=== PATIENT | male | born 1985 | race Caucasian/White ===

== ENCOUNTER 2018-01-15 07:44 | Emergency (ER) | payer SELFPAY ==
[2018-01-15 07:50] VITALS: BP 138/79; PULSE 77; RESP 16; TEMP 36.5; O2SAT 98
--- NOTE | 2018-01-15 08:45 | ED.GENADUL_ITS ---
Discharge Plan Disposition Patient Disposition: HOME Condition: Stable Discharge Details Chief Complaint: EyeProblem Clinical Impression: Bacterial conjunctivitis Primary Care Provider: NONE,NONE ED Provider: Yamile Grady Home Meds and New Rx's Prescriptions: New gatifloxacin 0.5 % drops 1 drp OP Q12H 7 Days RF: 0 Discharge Instructions Instructions: Conjunctivitis (ED) Additional Instructions: Use the antibiotic drops as directed. Engage in frequent handwashing and refrain from rubbing her left eye to prevent spread of infection which is highly contagious. Take Tylenol and Motrin as needed and directed for pain. Follow-up with primary care doctor in 1 week for reevaluation and return to the emergency department with any concerns. Discharge Data Discharge Date/Time-TO BE ENTERED AT DEPARTURE: 01/15/18 08:51 Discharge Physician: Yamile Grady Medical Decision Making 32yo M with L eye irritation and redness since yesterday and yellow discharge since this morning. Pt denies known injury, FB sensation or blurry vision. Saw pcp for same yesterday who diagnosed as allergies and was given claritin. Pt appears nontoxic and in no acute distress. L eye injection and tearing, minimal white crusting. OS 20/20, OD 20/20, OU 20/13. No periorbital edema, ecchymoses, erythema. No pain with EOMI. PERRL. Patient wears contacts daily, last use yesterday. Will treat for likely bacterial conjunctivitis with gatifloxacin which can also cover for organisms in a contact lens user. Tetanus up-to-date within 10 years. Patient instructed to follow with her primary care doctor in 1 week for reevaluation and return here with any concerns. HPI General Mode of arrival: ambulatory . Date/Time Provider Initiated Documentation: 01/15/18 08:07 . Limitations to Documentation: no limitations . Information obtained by: patient . HPI Narrative: Pt is a 32yo M with L eye irritation and redness since yesterday and yellow discharge since this morning. States eyes started as feeling swollen and sore and irritated yesterday but then woke up this morning and noted to be crusted with yellow discharge. Pt denies known injury, FB sensation or blurry vision. Saw pcp for same yesterday who diagnosed as allergies and was given claritin. Patient wears contacts daily, has taken his contacts out since yesterday. He presents wearing glasses. Last tetanus 10 years ago. Past medical history: None Surgical history: [place] teeth extraction Social history former tobacco use. Occasional alcohol use. Denies drugs Medications: None Allergies: Thur[place], NKDA PCP: PCP at his workplace at [employer] in the clinic. Related Data Home Medications Medication Instructions Recorded Confirmed gatifloxacin 1 drp OP Q12H 7 Days ml 01/15/18 Previous Rx's Medication Instructions Recorded gatifloxacin 1 drp OP Q12H 7 Days ml 01/15/18 Allergies Allergy/AdvReac Type Severity Reaction Status Date / Time salmon Allergy Severe anaphylaxis Uncoded 01/15/18 07:55 General Stated Complaint: EyeProblem RUBENS: 4 Review of Systems Review of Systems All systems reviewed & are unremarkable except as noted in HPI and below Constitutional Denies chills, Denies excessive sweating, Denies fatigue, Denies fever(s), Denies weakness and Denies weight loss Eyes Reports system reviewed and no additional complaints, except as docu, Denies blurry vision, Denies diplopia, Reports eye discharge, Denies floaters, Reports irritation, Denies itchy eyes and Denies photophobia ENT Denies vertigo, Denies dizziness, Denies otalgia, Denies nasal congestion, Denies sore throat and Denies throat swelling Cardiovascular Denies chest pain, Denies syncope, Denies rapid heart rate and Denies dyspnea Respiratory Denies dyspnea Gastrointestinal Denies abdominal pain, Denies diarrhea and Denies vomiting Genitourinary Denies hematuria, Denies dysuria and Denies flank pain Musculoskeletal Denies back pain and Denies joint swelling Integumentary/Breasts Denies lesions and Denies rash Neurologic Denies behavioral changes, Denies confusion, Denies vertigo, Denies dizziness, Denies syncope and Denies weakness Psychiatric Denies behavioral changes, Denies confusion and Denies depression Endocrine Denies excessive sweating and Denies fatigue Hematologic/Lymphatic Denies easy bruising and Denies lymphadenopathy Allergic/Immunologic Denies itchy eyes and Denies throat swelling PFSH Social History Smoking/Tobacco Use Status: Former Tobacco Use Surgical History EGD - MAC (07/10/16) Exam Const General: cooperative and healthy appearing Orientation: alert and awake HENMT Head: normal to inspection Ears: hearing grossly normal bilaterally and external ears normal General nose exam: external nose normal Face and sinus: normal facial exam Eyes General: appearance normal, both eyes and all related structures Alignment and Position: alignment normal Periorbital: periorbital findings normal Eyelids: eyelids normal Conjunctivae: conjunctival abnormality (Injection, mild whitish yellowish crusting) left Pupils: PERRL EOM: EOM intact bilaterally Neck Neck: normal visual inspection Resp Effort & Inspection: normal respiratory effort and able to speak in complete sentences Cardio Rate: regular rate Neuro General: alert and awake Cognition: normal cognition Speech: speech normal Gait: normal gait Extrem General: normal to inspection and full ROM Psych Appearance: grossly normal Mental Status: mental status grossly normal Speech and Movement: speech and movement normal Affect: normal affect Thought Process: normal Course Vital Signs Temperature 97.7 F 01/15/18 07:50 Pulse 77 01/15/18 07:50 Respiratory Rate 16 01/15/18 07:50 Blood Pressure 138/79 01/15/18 07:50 Pulse Oximetry 98 01/15/18 07:50 Temperature 97.7 F 01/15/18 07:50 Temperature Source Temporal Artery Scan 01/15/18 07:50 Pulse 77 01/15/18 07:50 Respiratory Rate 16 01/15/18 07:50 Respiratory Effort 01/15/18 07:53 Blood Pressure 138/79 01/15/18 07:50 Blood Pressure Position Sitting 01/15/18 07:50 Pulse Oximetry 98 01/15/18 07:50 Oxygen Delivery Method Room Air 01/15/18 07:50 Oxygen Flow Rate 0 01/15/18 07:50 Pain Level 7 01/15/18 07:50
== END 2018-01-15 08:51 | disposition home or self-care (01) ==
PROVIDERS: Emergency Provider Physician Assistant
DX: H10.022 Other mucopurulent conjunctivitis, left eye (principal)
CPT/HCPCS: 99283

== ENCOUNTER 2019-09-28 09:37 | Emergency (ER) | payer OTHER, SELFPAY ==
[2019-09-28] VITALS (18 sets, daily range): BP systolic 144–172; BP diastolic 90–107; PULSE 72–102; RESP 17; TEMP 36.7; O2SAT 96–99
--- NOTE | 2019-09-28 09:45 | DI.US_ITS ---
EXAM: US ABDOMEN LIMITED CLINICAL HISTORY: R/O cholecystitis, or gallstones RUQ abd pain TECHNIQUE: Ultrasound abdomen performed using standard protocol. COMPARISON: No exams were available for comparison FINDINGS: ABDOMINAL AORTA AND IVC: Visualized portions normal caliber. PANCREAS: Normal where visualized. LIVER: Increased echogenicity consistent with fatty infiltration. 17 cm in length. Hepatopedal flow in the Portal Vein. GALLBLADDER: No evidence of cholelithiasis. No evidence of wall thickening. No pericholecystic fluid identified. Distended measuring 4.1 cm in diameter. BILIARY SYSTEM: Common bile duct measures 3 mm. No intrahepatic biliary ductal dilation. GRIFFITH'S SIGN: Negative. KIDNEYS: Right kidney is normal in size. No evidence of renal calculi. No evidence of hydronephrosis . No renal mass or cyst identified. ASCITES: None seen. IMPRESSION: 1. Distended gallbladder but no evidence of cholelithiasis or biliary ductal dilatation. 2. Hepatic steatosis. DATA REPOSITORY:
--- NOTE | 2019-09-28 09:48 | ED.GENADUL_ITS ---
Discharge Plan Disposition Patient Disposition: HOME Condition: Stable Discharge Details Chief Complaint: Abd Prob Clinical Impression: Fatty (change of) liver, not elsewhere classified, Abdominal pain Primary Care Provider: Iris Gonzalez ED Provider: Veronica Leach Home Meds and New Rx's Prescriptions: New ondansetron HCl [Zofran] 4 mg tablet 4 mg PO Q8H PRN (Reason: nausea and vomiting) Qty: 14 RF: 0 potassium chloride 20 mEq tablet extended release 20 meq PO DAILY 7 Days Qty: 7 RF: 0 No Action chlorthalidone 50 mg tablet 50 mg PO DAILY RF: 0 lorazepam 0.5 mg tablet 0.5 mg PO PRN PRNRF: 0 sertraline 50 mg tablet 50 mg PO DAILY RF: 0 Discharge Instructions Instructions: Abdominal Pain (ED) Additional Instructions: Please follow-up with Dr. [facility] at 8: 30 AM. Have the HIDA scan done tomorrow please come here and be seen in the x-ray department. Take nausea medication as directed, take ibuprofen as needed for pain. Please come to the x-ray department at 10:45 AM tomorrow nothing to eat as per instructions. Stand Alone Forms: Work Release Referrals: Skylar Lamar MD [ [facility] STAFF PHYSICIAN] - 09/30/19 8:30 am (Please keep appointment at 830) Discharge Data Discharge Date/Time-TO BE ENTERED AT DEPARTURE: 09/28/19 13:27 Medical Decision Making <Veronica Leach - Last Filed: 09/29/19 08:21> 34-year-old male presents with chief complaint of right upper quadrant abdominal pain which he describes a sharp intermittent which began yesterday at 4 AM. Patient does endorse eating pizza prior to onset of symptoms. Associated with nausea vomiting which he describes as bilious, no diarrhea denies any hematoch ezia or hematemesis. Pain does not radiate. Denies any fever chills, chest pain, shortness of breath. Does have a history of anxiety, hypertension, depression. No surgical history. Work-up ordered including CBC, CMP, lipase UA. Normal saline 1 L bolus, Zofran 4 mg IV, morphine 2 mg IV. Abdominal ultrasound ordered to rule out cholecystitis. Differential diagnosis includes but not limited to cholecystitis, hepatitis, gallstones, gastroenteritis, small bowel obstruction (which is unlikely due to patient having normal bowel movements and no abdominal surgical history). 1039: Preliminary result received from electro mechanical technician, negative for gallstones, negative for cholecystitis no surrounding fluid. Did note fatty liver. 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 EXAM: CT ABDOMEN PELVIS W COMPARISON: Ultrasound of the abdomen 09/28/2019. FINDINGS: ABDOMEN: Lung Bases: Normal where visualized. Liver: Fatty infiltration. Round area of decreased attenuation in the dome of the right lobe of the liver. It is small for further characterization. Portal, Superior Mesenteric, and Splenic Veins: Unremarkable. Gallbladder and Biliary Tract: Distended. No radiodense calculus is identified. No biliary ductal dilatation. Pancreas: Normal density, no abnormal calcifications or inflammatory process. Spleen: Normal. Adrenals: No masses seen. Kidneys: Normal size, contour and axis. No radiodense stones or obstructive uropathy. No masses seen. Abdominal Aorta: Abdominal portion non-dilated. Bowel: No obstruction or bowel wall thickening. Appendix is unremarkable. Peritoneal Cavity: No ascites, collection or mesenteric inflammatory response. Lymph Nodes: Within normal limits. Bones: Unremarkable. Soft Tissues: Unremarkable. PELVIS: Bladder: Symmetric distention, no gross wall thickening. Reproductive Organs: Unremarkable as visualized. Lymph Nodes: Within normal limits. Bones: Within normal limits. IMPRESSION: No acute abdominal or pelvic findings. Findings were discussed with the emergency department on the date of the examination. At this time potassium is continuing to infuse, will repeat BMP after potassium infusion. Does have elevated liver enzymes hypomagnesia anemia and hypokalemia. Sodium is 135, total bilirubin is 2.0, AST 297 ALT is 381. These are elevated from previous labs last drawn on 07/10/2019. Will page surgery for outpatient follow-up for possible MRCP or HIDA scan. 1242: Spoke with Dr. Lamar with surgery regarding patient case in details she is agrees to having patient be seen morning at [facility], outpatient HIDA scan ordered for tomorrow 09/29/2019. Will discuss plan with patient. At this time I feel it is safe for patient to be sent home with nausea medication and will instruct to take ibuprofen as needed for pain. At this time hepatitis panel is pending. Patient was given Zofran 4 mg tablets at discharge, potassium 20 mEq tablets extended release p.o. daily x7 days for hypokalemia. BMP redrawn potassium has improved from 2.9 to 3.3 after 100 meq KCl IV piggyback, at this time patient is stable to be discharged home with close follow-up as previously discussed. Patient remained hemodynamically stable throughout stay, this text was generated using [employer] dictation system, please disregard any oddities of phrase or misspellings. Vital signs have improved from initial. Patient is no longer tachycardic no longer hypertensive. <Camden Gatica MD - Last Filed: 09/28/19 10:59> Patient examined [id number], discussed with Davon Leach, I agree with her assessment and plan including laboratory and ultrasound. I independently reviewed the patient's EKG which shows a normal sinus rhythm with a rate of 77, the QRS is narrow, the KS interval was 106, there is no ST segment elevation present HPI <Veronica Hany - Last Filed: 09/29/19 08:21> General Mode of arrival: ambulatory . Date/Time Provider Initiated Documentation: 09/28/19 09:41 . Limitations to Documentation: no limitations . Information obtained by: patient . HPI Narrative: 34-year-old male presents with chief complaint of right upper quadrant abdominal pain which he describes a sharp intermittent which began yesterday at 4 AM. Patient does endorse eating pizza prior to onset of symptoms. Associated with nausea vomiting which he describes as bilious, no diarrhea denies any hematochezia or hematemesis. Pain does not radiate. Denies any fever chills, chest pain, shortness of breath. Does have a history of anxiety, hypertension, depression. No surgical history. Related Data Home Medications Medication Instructions Recorded Confirmed chlorthalidone 50 mg PO DAILY 09/28/19 09/28/19 lorazepam 0.5 mg PO PRN PRN 09/28/19 09/28/19 ondansetron HCl [Zofran] 4 mg PO Q8H PRN #14 tab 09/28/19 potassium chloride 20 meq PO DAILY 7 Days #7 tab 09/28/19 sertraline 50 mg PO DAILY 09/28/19 09/28/19 Previous Rx's Medication Instructions Recorded ondansetron HCl [Zofran] 4 mg PO Q8H PRN #14 tab 09/28/19 potassium chloride 20 meq PO DAILY 7 Days #7 tab 09/28/19 Allergies Allergy/AdvReac Type Severity Reaction Status Date / Time salmon Allergy Severe anaphylaxis Uncoded 01/15/18 07:55 General Stated Complaint: Abd Prob RUBENS: 3 Review of Systems <Veronica Leach - Last Filed: 09/29/19 08:21> Narrative: Constitutional: Negative for weight loss, alert and oriented, well groomed, normal body habitus, appears uncomfortable. HEENT: Denies trauma, headaches, blurry vision, nasal discharge, sore throat, trouble swallowing. Chest: Denies chest pain, palpitations, irregular rhythm, hypertension. Respiratory: Denies Shortness of breath, cough, hemoptysis. GI: Denies diarrhea. Positive abdominal pain, nausea, vomiting.. : Denies dysuria, hematuria, flank pain, rectal bleeding. Reports decreased urination since yesterday. Neuro: Denies dizziness, blurry vision, weakness, syncope, headache or facial numbness. Hematologic: Denies easy bruising, intolerance to heat or cold, hair loss. All systems reviewed & are unremarkable except as noted in HPI and below PFSH <Veronica Leach - Last Filed: 09/29/19 08:21> Surgical History EGD - MAC (07/10/16) Social History Smoking/Tobacco Use Status: Former Tobacco Use Drug use: Never Do you feel safe at home: Yes Do you feel safe in your relationship?: Yes Exam <Veronica Leach - [facility] Filed: 09/29/19 08:21> Narrative Exam Narrative: Constitutional: Alert and oriented x3. Appears stated age. Normal body habitus. Head: Normocephalic, no trauma. Eyes: Pupils PERRLA, Red reflex noted, EOM's intact. Eyelids symmetrical without lesions, discharge, or swelling. ENT: Bilateral TM's WNL, External ear normal to inspection, no mastoid TTP, swelling, or erythema, Nasal turbinates WNL, no nasal discharge. Normal dentition, Posterior pharynx WNL, no exudate. Chest: RRR, mildly tachycardic, normal S1, S2, distal pulses intact. Resp: Lungs clear to auscultation bilaterally, no wheezes, rales, or rhonchi. Abdomen: Soft, nondistended, hyperactive bowel sounds all 4 quadrants. Tenderness right upper quadrant. Positive August sign. Musculoskeletal: Normal gait, 5/5 strength to all four extremities. Skin: No suspicious rashes or lesions. Capillary refill less than 2 sec. Neurologic: Cranial nerves II-XII intact. Alert and oriented x 3. DTR's intact. Hematologic/Lymphatic: No ecchymosis, no lymphadenopathy. Course <Veronica Leach - Last Filed: 09/29/19 08:21> Vital Signs Vital signs: Vital Signs Temperature 36.7 C 09/28/19 09:42 Pulse 102 H 09/28/19 09:42 Respiratory Rate 17 09/28/19 09:42 Blood Pressure 172/97 H 09/28/19 09:42 Pulse Oximetry 99 09/28/19 09:42 Temperature 36.7 C 09/28/19 09:42 Temperature Source Temporal Artery Scan 09/28/19 09:42 Pulse 102 H 09/28/19 09:42 Respiratory Rate 17 09/28/19 09:42 Blood Pressure 172/97 H 09/28/19 09:42 Blood Pressure Position Sitting 09/28/19 09:42 Pulse Oximetry 99 09/28/19 09:42 Oxygen Delivery Method Room Air 09/28/19 09:42 Oxygen Flow Rate 0 09/28/19 09:42 Pain Level 7 09/28/19 09:42
[2019-09-28] MEDS: Normal Saline 1,000 ML 1000 ML IV (10:00)
[2019-09-28] MEDS: Ondansetron 4 MG/2 ML VIAL IVP (10:01)
[2019-09-28] MEDS: MORPHine 10 MG/ML VIAL 2 MG IVP (10:01)
[2019-09-28 10:28] LABS: Abs Immature Grans 0.01 k/cumm (0.0-0.09); Absolute Basophil Count 0.02 k/cumm (0.0-0.2); Absolute Eosinophil Count 0.02 k/cumm (0.0-0.7); Absolute Lymphocyte Count 1.55 k/cumm (1.2-3.4); Absolute Monocyte Count 0.66 k/cumm (0.11-0.7); Absolute Neutrophil Count 3.42 k/cumm (1.2-6.7); Basophils % 0.4; Eosinophils % 0.4; HCT 45.1 % (40.0-50.0); HGB 15.9 g/dL (13.5-17.5); Immature Grans % 0.2 %; Lymphocytes % 27.3; Mean Corp. HGB Concentration 35.3 g/dL (32.0-36.0); Mean Corpuscular Hemoglobin 32.6 pg (27.0-33.0); Mean Corpuscular Volume 92.4 fL (80-95); Mean Platelet Volume 10.7 fL (8.0-11.0); Monocytes % 11.6; Neutrophils % 60.1; Platelet Count 189 x1000/uL (130-400); RBC 4.88 m/cumm (4.50-6.00); RBC Distribution Width 12.4 % (11.8-14.1); White Blood Cell Count 5.68 k/cumm (4.4-10.8)
[2019-09-28 10:41] LABS: ALT 381 U/L (16-63); AST 297 U/L (15-37); Albumin 4.5 g/dL (3.4-5.0); Alkaline Phosphatase 68 U/L (46-116); Anion Gap 14.1 mmol/L (3-11); BUN 20 mg/dL (7-18); CO2 29.9 mmol/L (21.0-32.0); CREATININE 1.13 mg/dL (0.70-1.30); Calcium 10.6 mg/dL (8.5-10.1); Chloride 91 mmol/L (98-107); Glucose 98 mg/dL (74-106); Lipase 151 U/L (73-393); Sodium 135 mmol/L (136-145); Total Protein 9.1 g/dL (6.4-8.2)
[2019-09-28 10:47] LABS: Potassium 2.9 mmol/L (3.5-5.1)
[2019-09-28 10:55] LABS: Bilirubin Color Interference (Negative); Blood Color Interference (Negative); Clarity Clear (Clear); Glucose Color Interference mg/dL (Negative); Ketones Color Interference mg/dL (Negative); Leukocyte Esterase Color Interference (Negative); Nitrite Color Interference (Negative); Specific Gravity 1.027 (1.005-1.025); Urobilinogen Color Interference EU/dL (Up TO 0.2)
[2019-09-28] MEDS: Normal Saline - Diluent 50 ML VIAL IV (10:57)
[2019-09-28] MEDS: Normal Saline Flush 10 ML SYR IVP (10:58)
[2019-09-28 11:03] LABS: Bacteria Few HPF (Negative); Casts 10-20 Hyaline LPF (Negative); Crystals Negative HPF (Negative); Epithelial Cells Few HPF (Negative); Mucus Moderate (Negative); RBC 0-2 HPF (0-2)
[2019-09-28] MEDS: Omnipaque 350 MG/ML 100 ML BTL IJ (11:03)
[2019-09-28 11:04] LABS: C & S Indicated? Yes
--- NOTE | 2019-09-28 11:16 | DI.CT_ITS ---
EXAM: CT ABDOMEN PELVIS W CLINICAL HISTORY: RUQ abd pain, R/O pancreatitis/Nause vomiting TECHNIQUE: Imaging Protocol: Axial computed tomography images with coronal and sagittal reformatted images were created and reviewed CONTRAST MATERIAL: Intravenous: Omnipaque 350 Contrast volume:100 mL Oral: No COMPARISON: Ultrasound of the abdomen 09/28/2019. FINDINGS: ABDOMEN: Lung Bases: Normal where visualized. Liver: Fatty infiltration. Round area of decreased attenuation in the dome of the right lobe of the liver. It is small for further characterization. Portal, Superior Mesenteric, and Splenic Veins: Unremarkable. Gallbladder and Biliary Tract: Distended. No radiodense calculus is identified. No biliary ductal d ilatation. Pancreas: Normal density, no abnormal calcifications or inflammatory process. Spleen: Normal. Adrenals: No masses seen. Kidneys: Normal size, contour and axis. No radiodense stones or obstructive uropathy. No masses seen. Abdominal Aorta: Abdominal portion non-dilated. Bowel: No obstruction or bowel wall thickening. Appendix is unremarkable. Peritoneal Cavity: No ascites, collection or mesenteric inflammatory response. Lymph Nodes: Within normal limits. Bones: Unremarkable. Soft Tissues: Unremarkable. PELVIS: Bladder: Symmetric distention, no gross wall thickening. Reproductive Organs: Unremarkable as visualized. Lymph Nodes: Within normal limits. Bones: Within normal limits. IMPRESSION: No acute abdominal or pelvic findings. Findings were discussed with the emergency department on the date of the examination. RADIATION DOSE DELIVERED: 630.97mGy.cm Total DLP DATA REPOSITORY: All CT scans at this facility are submitted to the National Radiology Data Registry (NRDR) Dose Index Registry (DIR) with the [employer] (ACR). RADIATION OPTIMIZATION: All CT scans at this facility use at least one of these dose optimization te chniques: automated exposure control; mA and/or kV adjustment per patient size (includes targeted exa ms where dose is matched to clinical indication); or iterative reconstruction.
[2019-09-28 11:22] LABS: Magnesium 1.4 mg/dL (1.8-2.4)
[2019-09-28] MEDS: POTASSIUM CHLORIDE 10 MEQ/100 ML BAG 100 MEQ IVPB (11:29)
[2019-09-28 12:58] LABS: Anion Gap 10.6 mmol/L (3-11); BUN 16 mg/dL (7-18); CO2 29.4 mmol/L (21.0-32.0); CREATININE 0.96 mg/dL (0.70-1.30); Calcium 9.6 mg/dL (8.5-10.1); Chloride 95 mmol/L (98-107); Glucose 88 mg/dL (74-106); Potassium 3.3 mmol/L (3.5-5.1); Sodium 135 mmol/L (136-145)
--- NOTE | 2019-09-28 13:48 | NUR.NOTE ---
Nursing Note: Patient has appt for HIDA scan September 28 @ 1030a. Follow up appt with Dr Willard BreenSeptember 29 @ [id number]. Follow up for referral [facility] Kathleen Goodrich
[2019-09-29 10:49] LABS: Hepatitis A Antibody IgM Negative (Negative); Hepatitis B Core Antibody Negative (Negative); Hepatitis B surface Ag Negative (Negative); Hepatitis C Ab w Rflx HCV PCR Negative (Negative)
== END 2019-09-28 13:27 | disposition home or self-care (01) ==
PROVIDERS: Emergency Provider Registered Nurse Emergency; PCP Nurse Practitioner Adult Health
DX: K76.0 Fatty (change of) liver, not elsewhere classified (principal); R10.11 Right upper quadrant pain; R11.2 Nausea with vomiting, unspecified; E87.6 Hypokalemia; I10 Essential (primary) hypertension
CPT/HCPCS: 36415; 80048; 80053; 83690; 86704; 86709; 86803; 87340; 93005; 96361; 96365; 96374; 96375; 99285; 74177; 76705; 81003; 81015; 83735; 85025; 87086; 93010; 99284; J2270; J2405; J3480; J3490

== ENCOUNTER 2019-09-29 01:02 | Outpatient (CLI) | payer OTHER, SELFPAY ==
--- NOTE | 2019-09-29 11:00 | DI.NM_ITS ---
EXAM: NM HEPATOBILIARY SCAN GRP CLINICAL HISTORY: ELEVATED LFT'S,RUQ ABD PAIN, FATTY LIVER DISEASE. TECHNIQUE: Injected dose: 4.9 mCi Tc-99 mebrofenin COMPARISON: CT CT ABDOMEN PELVIS W from 09/28/2019 FINDINGS: Normal hepatic transit time. Prompt excretion into the small bowel. Gallbladder was not visualized until 2 hours post injection. IMPRESSION: 1. No evidence of acute cholecystitis. 2. Delayed visualization of the gallbladder. This can be seen with chronic cholecystitis. [facility] HIDA scan may be considered for further evaluation. SNM guidelines: Gallbladder visualization should be present by 3 hours. Delayed tjcrrvr-az-[id number] moreira sit beyond 60 min raises the suspicion for partial common bile duct (CBD) obstruction. Gallbladder ejection fraction <35% has a good correlation with acalculous disease (i.e., chronic acal culous cholecystitis, cystic duct syndrome, sphincter of Oddi disease).
== END 2019-09-29 01:22 ==
PROVIDERS: PCP Nurse Practitioner Adult Health; Visit Provider Registered Nurse Emergency
DX: R10.11 Right upper quadrant pain (principal); K76.0 Fatty (change of) liver, not elsewhere classified; R94.5 Abnormal results of liver function studies; K82.8 Other specified diseases of gallbladder
CPT/HCPCS: 78227

== ENCOUNTER 2019-10-01 08:59 | Outpatient (CLI) | payer OTHER, SELFPAY ==
[2019-10-02 01:14] LABS: COVID-19 RT-PCR UVMMC Result Negative (Negative)
== END 2019-10-01 09:19 ==
PROVIDERS: PCP Nurse Practitioner Adult Health; Visit Provider Surgery
DX: Z11.59 Encounter for screening for other viral diseases (principal); Z01.818 Encounter for other preprocedural examination
CPT/HCPCS: U0003

== ENCOUNTER 2019-10-05 06:11 | Day surgery (SDC) | payer OTHER, SELFPAY ==
[2019-10-05 06:25] VITALS: BP 139/96; PULSE 92; RESP 18; TEMP 36.6; O2SAT 96
[2019-10-05] MEDS: Lactated Ringers 1,000 ML 80 ML IV (06:48)
--- NOTE | 2019-10-05 07:23 | PDOC.DSDIS_ITS ---
Discharge Plan Disposition Patient Disposition: HOME Condition: Good Discharge Details Reason For Visit: Laparoscopic cholecystectomy Attending Provider: Skylar Lamar Primary Care Provider: Iris Gonzalez Home Meds and New Rx's Prescriptions: New hydrocodone-acetaminophen 5-325 mg Tablet 1 tab PO Q4H PRN (Reason: Pain) Qty: 15 RF: 0 Continued chlorthalidone 50 mg tablet 50 mg PO DAILY RF: 0 lorazepam 0.5 mg tablet 0.5 mg PO PRN PRNRF: 0 sertraline 50 mg tablet 50 mg PO DAILY RF: 0 ondansetron HCl [Zofran] 4 mg tablet 4 mg PO Q8H PRN (Reason: nausea and vomiting) Qty: 14 RF: 0 Discharge Instructions Additional Instructions: The top bandage can be removed tomorrow. The steri strips will usually stick for about a week. When the edges start to curl up, they can be removed. It is okay to shower tomorrow, the water can run over the steri strips Do not swim or soak in a tub for two weeks Call for any concerns including fever, increased pain, vomiting, incision redness or drainage. Do not lift more than 15 pounds for two weeks. Walking and stairs are fine. Do not drive if on narcotic pain meds or if limited by pain. Do not take hydrocodone and lorazepam at the same time. May use Tylenol alternating with ibuprofen for pain control. Ice is also an option. The maximum dose for Tylenol is 4000 mg/day. May use ibuprofen 800 mg every 8 hours as needed. If concerned about constipation, you may use a stool softener or milk of magnesia. Referrals: Skylar Lamar MD [ [facility] STAFF PHYSICIAN] - (Return in 10-14 days with labs done prior. My office will contact you to schedule the blood work.) Activity:: Do not lift more than 15 pounds Remove Dressings/Wound Care:: 24 hours Shower/Bathe:: 24 hours Diet:: Low fat for two weeks Discharge Orders Discharge Orders: Discharge Order (Routine); Ordered 10/05/19 Ordered By: Skylar Lamar DS: Diagnosis Discharge Diagnosis (1) Chronic cholecystitis: Status: Acute
[2019-10-05] MEDS: ceFAZolin 2 GM/50 ML BAG IVPB (07:32)
--- NOTE | 2019-10-05 07:33 | ROE_ITS ---
Date of service: 10/05/19 Time of Service: 08:38 Operative Note Operative Note DATE OF PROCEDURE: 10/05/19 PRE-OP DIAGNOSIS: Chronic cholecystitis POST-OP DIAGNOSIS: same PROCEDURE: Laparoscopic cholecystectomy SURGEON: Skylar Lamar BUILDING EQUIPMENT INSPECTOR: John Hopson ANESTHESIA: GETA and local Patient was transported to: PACU Indications: This patient presented to the emergency department with classic biliary colic symptoms. He had a normal ultrasound and CT scan. He was noted to have a new elevation in his liver enzymes and T bili. Subsequent HIDA scan showed delayed filling of the gallbladder consistent with chronic cholecystitis. Procedure Description: The patient was placed supine on the operative table and after induction of general anesthetic was prepped and draped sterilely. A 5 mm incision was made to the left of the umbilicus after injecting local anesthetic and the abdomen entered under direct visualization. A CO2 pneumoperitoneum was begun and she was placed in reverse Trendelenberg position. The epigastric and 2 lateral ports were placed under direct visualization after injecting local anesthetic. The gallbladder did not appear acutely inflamed. The liver was noted to have moderate fatty change. The gallbladder was decompressed of about 40cc of clear bile using the needle. The fundus was grasped and pulled up over the liver. The gallbladder infundibulum was retracted laterally and the peritoneum overlying the triangle of Calot dissected free with hook cautery. The cystic duct and artery were isolated and visualized going directly onto the gallbladder. The common bile duct was visualized and avoided. The cystic duct was not dilated and had no stones palpated within it. The cystic duct was clipped twice distally and once proximally and divided. The artery was clipped twice proximally, once distally and divided. There were also a few vascular branches in the gallbladder fossa that were clipped. The gallbladder was dissected off the liver bed with hook cautery and removed through the epigastric incision in an Endo Catch bag. The operative site was inspected with no evidence of bleeding or bile leak. The CO2 was released and then the ports removed. The skin of the port sites was then closed with a 4-0 Monocryl subcuticular stitch. He tolerated the procedure well and was stable to recovery
--- NOTE | 2019-10-05 08:20 | GB_PTH ---
PATIENT: David Berrios LOC: [facility] U#:[id number] AGE/SX: 34/M ROOM: RE10/05/[address]: Skylar Lamar MD : [id number] BED: DIS: 10/05/2019 SPEC #: [id number] RECD: 10/05/19 12:33 STATUS: ТАТЬЯНА REQ #: [id number] TYREE: 10/05/19 08:[address]: Skylar Lamar DEPT: Surgical Specimen RECD BY: Lucie Ayala ENTERED: 10/05/19 12:34 SP TYPE: GB OTHR DR: Iris Gonzalez Tissues: 1 - GALLBLADDER Procedures: GROSS AND MICRO LEVEL 3 Comments: [id number]
[2019-10-05 08:38] VITALS: BP 130/87; PULSE 95; RESP 16; TEMP 36.5; O2SAT 99
[2019-10-05 08:43] VITALS: BP 125/78; PULSE 93; RESP 18; TEMP 36.6; O2SAT 95
[2019-10-05 08:48] VITALS: BP 124/71; PULSE 88; RESP 22; TEMP 36.6; O2SAT 98
[2019-10-05 09:03] VITALS: BP 124/71; PULSE 90; RESP 17; TEMP 36.6; O2SAT 98
[2019-10-05 09:54] VITALS: BP 137/81; PULSE 88; RESP 18; TEMP 36.3; O2SAT 95
[2019-10-05] MEDS: HYDROcodone 5/Acetaminophen 325 TAB PO (09:55)
== END 2019-10-05 10:39 | disposition home or self-care (01) ==
PROVIDERS: PCP Nurse Practitioner Adult Health; Visit Provider Surgery
PROC: 0FT44ZZ Resection of Gallbladder, Percutaneous Endoscopic Approach (ICD-10-PCS; CPT 47562; principal; 2019-10-05 07:30)
DX: K81.1 Chronic cholecystitis (principal); I10 Essential (primary) hypertension
CPT/HCPCS: 47562; 88304; J0690; J1100; J1885; J2001; J2405; J3475

== ENCOUNTER 2019-10-18 03:05 | Outpatient (CLI) | payer OTHER, SELFPAY ==
[2019-10-18 11:33] LABS: AST 763 U/L (15-37); Albumin 3.6 g/dL (3.4-5.0); Alkaline Phosphatase 79 U/L (46-116); BUN 7 mg/dL (7-18); Bilirubin, Total 1.4 mg/dL (0.2-1.0); CREATININE 0.62 mg/dL (0.70-1.30); Calcium 8.6 mg/dL (8.5-10.1); Chloride 101 mmol/L (98-107); Glucose 81 mg/dL (74-106); Potassium 3.4 mmol/L (3.5-5.1); Sodium 138 mmol/L (136-145); Total Protein 7.5 g/dL (6.4-8.2)
[2019-10-18 11:34] LABS: ALT 595 U/L (16-63)
== END 2019-10-18 03:25 ==
PROVIDERS: PCP Nurse Practitioner Adult Health; Visit Provider Surgery
DX: R94.5 Abnormal results of liver function studies (principal)
CPT/HCPCS: 36415; 80053

== ENCOUNTER 2019-12-02 03:18 | Outpatient (CLI) | payer OTHER, SELFPAY ==
[2019-12-02 12:43] LABS: Abs Immature Grans 0.01 10^3/uL (0.0-0.06); Absolute Basophil Count 0.04 10^3/uL (0.0-0.2); Absolute Eosinophil Count 0.04 10^3/uL (0.0-0.7); Absolute Lymphocyte Count 1.97 10^3/uL (1.2-3.4); Absolute Monocyte Count 0.54 10^3/uL (0.1-0.8); Absolute Neutrophil Count 3.97 10^3/uL (1.2-6.7); Basophils % 0.6; Eosinophils % 0.6; HCT 43.3 % (40.0-50.0); HGB 15.6 g/dL (13.5-17.5); Immature Grans % 0.2; MCH 33.1 pg (27.0-33.0); MCV 91.7 fL (80-95); Monocytes % 8.2; Neutrophils % 60.4; Nucleated RBC 0 %; Platelet Count 173 10^3/uL (130-400); RBC 4.72 10^6/uL (4.36-5.78); RDW 11.5 % (11.8-14.1); RDW-SD 38.8 fL; WBC 6.57 10^3/uL (4.4-10.8)
[2019-12-02 12:54] LABS: INR 1.1 (0.9-1.1)
[2019-12-02 13:31] LABS: Iron 101 ug/dL (65-175); Total Iron Binding Capacity 365 ug/dL (250-450); Transferrin Sat 28 % (20-55)
[2019-12-02 14:07] LABS: Albumin 4.3 g/dL (3.4-5.0); Alkaline Phosphatase 78 U/L (46-116); Anion Gap 15.5 mmol/L (3-11); BUN 7 mg/dL (7-18); Bilirubin, Total 1.1 mg/dL (0.2-1.0); CO2 26.5 mmol/L (21.0-32.0); Calcium 9.4 mg/dL (8.5-10.1); Chloride 92 mmol/L (98-107); Glucose 91 mg/dL (74-106); Sodium 134 mmol/L (136-145); Total Protein 8.4 g/dL (6.4-8.2)
[2019-12-02 14:31] LABS: Potassium 2.9 mmol/L (3.5-5.1)
[2019-12-02 14:33] LABS: ALT 1021 U/L (16-63); AST 1187 U/L (15-37); Ferritin > 2000 ng/mL (26-388)
[2019-12-03 09:19] LABS: Alpha 1 Antitrypsin,Serum 197 mg/dL (90-200)
[2019-12-03 14:26] LABS: ANA Interpretation Negative (Negative)
[2019-12-04 11:19] LABS: Ceruloplasmin 27.2 mg/dL
[2019-12-04 16:28] LABS: Smooth Muscle Ab Screen Negative (Negative)
[2019-12-06 15:17] LABS: IgA 462 mg/dL (85-499); Interpretation (See Note); Tissue Transglutaminase IgA <1.2 U/mL (<4.0)
== END 2019-12-02 03:38 ==
PROVIDERS: PCP Nurse Practitioner Adult Health; Visit Provider Physician Assistant Medical
DX: R94.5 Abnormal results of liver function studies (principal)
CPT/HCPCS: 36415; 80053; 82390; 82784; 83516; 82103; 82728; 83540; 83550; 85025; 85610; 86038; 86255

== ENCOUNTER 2020-01-19 05:30 | Outpatient (CLI) | payer OTHER, SELFPAY ==
[2020-01-19 14:32] LABS: ALT 205 U/L (16-63); AST 140 U/L (15-37); Albumin 3.9 g/dL (3.4-5.0); Alkaline Phosphatase 69 U/L (46-116); Anion Gap 10.4 mmol/L (3-11); BUN 9 mg/dL (7-18); Bilirubin, Total 0.4 mg/dL (0.2-1.0); CO2 25.6 mmol/L (21.0-32.0); CREATININE 0.82 mg/dL (0.70-1.30); Chloride 102 mmol/L (98-107); Glucose 98 mg/dL (74-106); Potassium 3.9 mmol/L (3.5-5.1); Sodium 138 mmol/L (136-145)
[2020-01-21 20:06] LABS: Liver/Kidney Microsome Type 1 <5.0 U
== END 2020-01-19 05:50 ==
PROVIDERS: Internal Medicine Gastroenterology; PCP Nurse Practitioner Adult Health; Visit Provider Physician Assistant Medical
DX: R94.5 Abnormal results of liver function studies (principal)
CPT/HCPCS: 36415; 80053; 86255

== ENCOUNTER 2020-02-01 01:29 | Outpatient (CLI) | payer OTHER, SELFPAY ==
[2020-02-01 12:18] LABS: ALT 248 U/L (16-63); AST 147 U/L (15-37); Albumin 3.8 g/dL (3.4-5.0); Alkaline Phosphatase 65 U/L (46-116); Bilirubin, Direct 0.24 mg/dL (0.00-0.20); Bilirubin, Total 0.6 mg/dL (0.2-1.0); Total Protein 7.8 g/dL (6.4-8.2)
== END 2020-02-01 01:49 ==
PROVIDERS: Visit Provider Physician Assistant Medical
DX: R94.5 Abnormal results of liver function studies (principal)
CPT/HCPCS: 36415; 80076

== ENCOUNTER 2020-05-08 03:02 | Outpatient (CLI) | payer BC, SELFPAY ==
[2020-05-08 13:31] LABS: ALT 445 U/L (16-63); AST 339 U/L (15-37); Albumin 4.3 g/dL (3.4-5.0); Alkaline Phosphatase 62 U/L (46-116); Bilirubin, Direct 0.28 mg/dL (0.00-0.20); Bilirubin, Total 0.9 mg/dL (0.2-1.0); Total Protein 8.2 g/dL (6.4-8.2)
== END 2020-05-08 03:22 ==
PROVIDERS: Visit Provider Internal Medicine Gastroenterology
DX: R94.5 Abnormal results of liver function studies (principal)
CPT/HCPCS: 36415; 80076

== ENCOUNTER 2020-07-19 03:15 | Outpatient (CLI) | payer BC, SELFPAY ==
[2020-07-19 13:08] LABS: Anion Gap 6.8 mmol/L (3-11); BUN 12 mg/dL (7-18); CO2 26.2 mmol/L (21.0-32.0); CREATININE 1.1 mg/dL (0.70-1.30); Calcium 9.5 mg/dL (8.5-10.1); Calculated LDL 147 mg/dL (<100); Chloride 103 mmol/L (98-107); Cholesterol 232 mg/dL (<200); Glucose 129 mg/dL (74-106); HDL Cholesterol 66 mg/dL (40-60); Potassium 4.1 mmol/L (3.5-5.1); Sodium 136 mmol/L (136-145); Triglyceride 98 mg/dL (<150)
== END 2020-07-19 03:16 | disposition home or self-care (01) ==
LOC: LOS 03:15
DX: Z00.00 Encounter for general adult medical examination without abnormal findings (principal); Z13.220 Encounter for screening for lipoid disorders
CPT/HCPCS: 36415; 80048; 80061

== ENCOUNTER 2021-02-24 11:50 | Emergency (ER) | payer OTHER, SELFPAY ==
--- NOTE | 2021-02-24 11:30 | RT.EKG_ITS ---
APPROVED REPORT Exam: Resting ECG Reason for Exam: SYNCOPE Patient Location: E HR:93 bpm ECG Measurements Heart Rate 93 AXIS TN 128 P 49 QRSd 82 QRS 76 QT 343 T 22 QTc 427 Conclusion Sinus rhythm...normal P axis, V-rate 60- 99
[2021-02-24 12:03] VITALS: BP 156/91; PULSE 92; RESP 18; TEMP 36.6; O2SAT 96
--- NOTE | 2021-02-24 12:07 | ED.GENADUL_ITS ---
Discharge Plan Disposition Patient Disposition: HOME Condition: Stable Discharge Details Clinical Impression: Loss of consciousness, Blood alcohol, elevated Primary Care Provider: Tamar Moscoso ED Provider: Austin Chowdhury Home Meds and New Rx's Prescriptions: Continued bupropion HCl 300 mg tablet extended release 24 hr 300 mg PO QAM Qty: 90 RF: 3 hydrochlorothiazide 25 mg tablet 25 mg PO QAM Qty: 90 RF: 3 metoprolol succinate 25 mg tablet extended release 24 hr 25 mg PO DAILY Qty: 90 RF: 3 clonazepam 0.5 mg tablet 0.25 mg PO BID MDD 0.5mg PRN (Reason: anxiety) Qty: 10 RF: 0 sumatriptan succinate 50 mg tablet 50 mg PO ONCE Qty: 10 RF: 2 Discharge Instructions Additional Instructions: You had an elevated blood alcohol level and your liver function tests were elevated the rest of your blood work was unremarkable follow up with your primary care provider this week if you feel more ill, have severe pain or difficulty breathing return to the emergency department Medical Decision Making 35 yo male with hx of anxiety and migraines comes in with chief complaint of loc. 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 He denies having any symptoms prior to this such as headache, fever, dyspnea, chest pain, abdominal pain or back pain. Denies any alcohol or drug use. No biting of his tongue or urinary incontinence during this event or visible shaking reported by the coworker. He has been feeling anxious recently and waking up frequently. He is hemodynamically stable with clear speech on arrival. No focal motor deficits, CN II-XII intact, clear speech, soft abdomen. Unclear etiology for his event, seems more like syncope than seizure. Will obtain labs and monitor on tele. Has no headache so do not feel imaging of the head indicated and has no hypoxia, tachycardia or evidence of dvt on exam so doubt PE and do not feel ct chest indicated. pt's labs show blood alcohol level of 270 and he denies drinking alcohol today and is clinically sober, states he had alcohol last night none today. I suspect he drinks more than he is admitting to but given the elevated level i suspect this is what caused him to pass out, remains stable and again clinically sober. Will be discharged and advised to f/u with pcp and return precautions given Differential Diagnosis Differential Diagnosis: anemia, vasovagal, orthostasis, seizure Lab Data Lab results reviewed: Yes I reviewed the patient's lab results. ECG Data Attestation: I personally reviewed and interpreted this ECG (s) as follows: Prior ECG tracings: not available for review Interpretation: sinus rhythm, rate of 93, no acute st t wave ischemic findings HPI General Mode of arrival: EMS . Date/Time Provider Initiated Documentation: 02/24/21 12:06 . Limitations to Documentation: no limitations . Information obtained by: patient . History of Present Illness 35 year old M presents to the emergency department with the chief complaint of passed out, described as moderate, Patient started experiencing this hour(s) (1) and it has been now resolved. No relieving factors improve symptom(s), No exacerbating factors reported . Patient notes denies chest pain, fever/chills and headaches. Patient did receive the following treatments prior to arrival, none Related Data Home Medications Medication Instructions Recorded Confirmed clonazepam 0.5 mg tablet 0.25 mg PO BID PRN #10 tab MDD 12/13/20 02/24/21 0.5mg bupropion HCl 300 mg 24 hr tablet, 300 mg PO QAM #90 tab 12/14/20 02/24/21 extended release hydrochlorothiazide 25 mg tablet 25 mg PO QAM #90 tab 12/14/20 02/24/21 metoprolol succinate 25 mg 25 mg PO DAILY #90 tab 12/14/20 02/24/21 tablet,extended release 24 hr sumatriptan succinate 50 mg tablet 50 mg PO ONCE #10 tab 02/13/21 02/24/21 Previous Rx's Medication Instructions Recorded clonazepam 0.5 mg tablet 0.25 mg PO BID PRN #10 tab MDD 12/13/20 0.5mg bupropion HCl 300 mg 24 hr tablet, 300 mg PO QAM #90 tab 12/14/20 extended release hydrochlorothiazide 25 mg tablet 25 mg PO QAM #90 tab 12/14/20 metoprolol succinate 25 mg 25 mg PO DAILY #90 tab 12/14/20 tablet,extended release 24 hr sumatriptan succinate 50 mg tablet 50 mg PO ONCE #10 tab 02/13/21 Allergies Allergy/AdvReac Type Severity Reaction Status Date / Time Thiazides Allergy Unknown Verified 12/14/20 09:06 General Stated Complaint: Dizzy/Sync RUBENS: 3 Review of Systems All systems reviewed & are unremarkable except as noted in HPI and below Constitutional Constitutional: Denies chills, Denies fever(s) and Denies weakness Cardiovascular Cardiovascular: Denies chest pain and Denies dyspnea Respiratory Respiratory: Denies cough and Denies dyspnea Gastrointestinal Gastrointestinal: Denies abdominal pain, Denies nausea and Denies vomiting Musculoskeletal Musculoskeletal: Denies joint swelling Neurologic Neurologic: Denies weakness [facility] Medical History Axillary lymphadenopathy (~09/17/18) Decreased libido (~04/28/18) LOU (generalized anxiety disorder) (~06/23/18) Hyperlipemia (~03/16/18) Hypertension Migraine (~01/01/19) Unintended weight gain (~01/01/19) Surgical History EGD - MAC (07/10/16) [place] teeth extracted Family History Mother Hyperlipidemia Hypertension Substance abuse Father Heart disease Hyperlipidemia Hypertension Maternal Grandfather , age 87 Diabetes Heart disease Paternal Grandfather , age 986 Asthma Cancer Diabetes Heart disease Hyperlipidemia Maternal Grandmother No problems noted. Paternal Grandmother , age 85 No problems noted. Social History Smoking/Tobacco Use Status: Current-Occasional Tobacco Type: cigarettes Smoking packs per day: 0.5 Smoking cigarettes per day: 10.0 Years smoked: 15 Smoking pack-years: 7.50 Quit status: quit date established Smoking risk assessment performed?: Yes Alcohol Intake: current Alcohol Intake frequency: a few times a week Alcohol type: wine Drug use: Rarely Substance use type: marijuana Counseling given: No Counseling provided: none Caregiver/Support person: No Household members: spouse and children Housing: house Communication Needs: None Do you need help understanding health information?: Never Pets and animals: Yes Pets and animals: dog(s) Sexually active: Yes Do you think of yourself as: lesbian/jamison/homosexual Current gender identity: male What is your relationship status?: How often do you talk on the phone with friends or family?: three or more times per week How often do you get together with friends or relatives?: twice per week How often do you attend taoist or confucianist services?: decline to answer Do you belong to any clubs or organized social groups?: yes Panel score (0-1 are the most socially isolated patients): 3 What type of physical activity do you participate in: yoga Duration: 15-30 minutes/day Frequency: 5-6 times per week Sandy/Jain: Holiness Special sandy needs: No Seatbelt use: always Helmet use: Yes Helmet use: always Drive intox or ride w/intox auto transport driver: No Do you feel safe at home: Yes Do you feel safe in your relationship?: Yes Victim of physical abuse: No Victim of emotional abuse: No Victim of sexual abuse: No Would you like helpful sources: No Exam Const General: no acute distress Orientation: alert HENMT Head: normal to inspection Ears: external ears normal General nose exam: external nose normal Mouth: moist mucous membranes Eyes General: appearance normal, both eyes and all related structures Neck Neck: normal visual inspection Resp Effort & Inspection: normal respiratory effort and able to speak in complete sentences Cardio Rate: regular rate GI Palpation: soft and nontender Skin General skin exam: no rashes or lesions noted Neuro General: patient alert and patient oriented x3 Extrem General: normal to inspection Psych Mental Status: mental status grossly normal Course Vital Signs Vital signs: Vital Signs Temperature 36.6 C 02/24/21 12:03 Pulse 92 H 02/24/21 12:03 Respiratory Rate 18 02/24/21 12:03 Blood Pressure 156/91 H 02/24/21 12:03 Pulse Oximetry 96 02/24/21 12:03 Temperature 36.6 C 02/24/21 12:03 Temperature Source Tympanic 02/24/21 12:03 Pulse 92 H 02/24/21 12:03 Respiratory Rate 18 02/24/21 12:03 Blood Pressure 156/91 H 02/24/21 12:03 Blood Pressure Position Sitting 02/24/21 12:03 Pulse Oximetry 96 02/24/21 12:03 Oxygen Delivery Method Room Air 02/24/21 12:03 Oxygen Flow Rate 0 02/24/21 12:03 Pain Level 0 02/24/21 12:03
[2021-02-24 12:12] VITALS: RESP 16
[2021-02-24 12:27] LABS: Abs Immature Grans 0.01 10^3/uL (0.0-0.06); Absolute Basophil Count 0.05 10^3/uL (0.0-0.2); Absolute Eosinophil Count 0.13 10^3/uL (0.0-0.7); Absolute Lymphocyte Count 3.58 10^3/uL (1.2-3.4); Absolute Monocyte Count 0.56 10^3/uL (0.1-0.8); Absolute Neutrophil Count 2.88 10^3/uL (1.2-6.7); BE (Venous) 2 mmol/L (-2-3); Basophils % 0.7; Eosinophils % 1.8; HCO3 (Venous) 27 mmol/L (23-28); HCT 44.5 % (40.0-50.0); HGB 15.4 g/dL (13.5-17.5); Immature Grans % 0.1; Lymphocytes % 49.7; MCH 32.8 pg (27.0-33.0); MCHC 34.6 % (32.0-36.0); MCV 94.7 fL (80-95); Monocytes % 7.8; Neutrophils % 39.9; Nucleated RBC 0 %; O2 Sat (Venous) 97 %; Platelet Count 177 10^3/uL (130-400); RDW 12.5 % (11.8-14.1); RDW-SD 43.7 fL; TCO2 (Venous) 23 mmol/L (24-29); WBC 7.21 10^3/uL (4.4-10.8); pCO2 (Venous) 43 mmHg (41-51); pH (Venous) 7.41 (7.31-7.41); pO2 (Venous) 96 mmHg
[2021-02-24 12:52] LABS: ALT 118 U/L (16-63); AST 137 U/L (15-37); Alkaline Phosphatase 62 U/L (46-116); Anion Gap 11.6 mmol/L (3-11); BUN 10 mg/dL (7-18); Bilirubin, Direct 0.2 mg/dL (0.0-0.2); Bilirubin, Total 0.4 mg/dL (0.2-1.0); CO2 27.4 mmol/L (21.0-32.0); CREATININE 0.9 mg/dL (0.70-1.30); Calcium 8.8 mg/dL (8.5-10.1); Chloride 103 mmol/L (98-107); Creatine Kinase 110 U/L (39-308); Glucose 86 mg/dL (74-106); Lipase 130 U/L (73-393); Magnesium 2.2 mg/dL (1.8-2.4); Potassium 3.8 mmol/L (3.5-5.1); Sodium 142 mmol/L (136-145); TSH (W/Ref FT4) 1.48 uIU/mL (0.36-3.74); Total Protein 8.6 g/dL (6.4-8.2); Troponin I < 0.05 ng/mL (<0.06)
[2021-02-24 12:58] LABS: Salicylate 3.2 mg/dL (<2.8)
[2021-02-24 13:25] LABS: Acetaminophen < 2 ug/mL (10-30)
[2021-02-24 13:47] VITALS: BP 137/89; PULSE 98; RESP 18; TEMP 36.3; O2SAT 100
== END 2021-02-24 15:46 | disposition home or self-care (01) ==
PROVIDERS: Emergency Provider Emergency Medicine
DX: R55 Syncope and collapse (principal); Y90.8 Blood alcohol level of 240 mg/100 ml or more; R74.01 Elevation of levels of liver transaminase levels
CPT/HCPCS: 36415; 36416; 80053; 80307; 82550; 82805; 82962; 83690; 87635; 93005; 99284; 80320; 80329; 82248; 83735; 84443; 84484; 85025; 93010; 99285

== ENCOUNTER 2021-03-07 11:02 | Emergency (ER) | payer OTHER, SELFPAY ==
[2021-03-07] VITALS (32 sets, daily range): BP systolic 117–136; BP diastolic 72–96; PULSE 93–110; RESP 13–24; TEMP 36.3; O2SAT 84–99
--- NOTE | 2021-03-07 11:00 | RT.EKG_ITS ---
APPROVED REPORT Exam: Resting ECG Reason for Exam: passed out Patient Location: E HR:101 bpm ECG Measurements Heart Rate 101 AXIS DC 125 P 58 QRSd 81 QRS 84 QT 342 T 22 QTc 444 Conclusion Sinus tachycardia...rate> 99
--- NOTE | 2021-03-07 11:15 | ED.GENADUL_ITS ---
Discharge Plan Disposition Patient Disposition: HOME Condition: Stable Discharge Details Clinical Impression: Blood alcohol, elevated, Loss of consciousness Primary Care Provider: Tamar Moscoso ED Provider: Austin Chowdhury Home Meds and New Rx's Prescriptions: Continued bupropion HCl 300 mg tablet extended release 24 hr 300 mg PO QAM Qty: 90 RF: 3 hydrochlorothiazide 25 mg tablet 25 mg PO QAM Qty: 90 RF: 3 sumatriptan succinate 50 mg tablet 50 mg PO PRN RF: 0 metoprolol succinate 50 mg tablet extended release 24 hr 50 mg PO DAILY Qty: 90 RF: 3 clonazepam 0.5 mg tablet 0.25 mg PO BID MDD 0.5mg PRN (Reason: anxiety) Qty: 10 RF: 0 Discharge Instructions Additional Instructions: your blood alcohol level was again elevated today otherwise no new abnormalities were seen follow up with your primary care provider within 1 week if you feel more ill, have difficulty breathing or chest pain return to the emergency department Medical Decision Making 35 yo male with hx of htn, hld, anxiety, who comes in after he was found unresponsive at work by coworker and similar event took place 2 weeks ago and was found to have an alcohol level at that time of 200. He denies having any chest pain, dyspnea, fevers, abdominal pain headache. Unclear he was unresponsive for, no tongue biting or loss of urinary control. He is currently caox4 and clinically sober. He has no focal neuro deficits, clear speech, cn II- XII intact. Unclear etiology for this episode but will keep on tele monitor, evaluate for electrolyte abnormalities and anemia and also send troponin and alcohol level. He does admit to drinking last night but none today, I suspect that these episodes could just be him falling asleep at work from inadequate sleep due to the alcohol use. labs show no acute abnormality other than alcohol level over 300. Discussed with patient and he is denying alcohol use today and only had 3 drinks last night. I advised that the blood alcohol level doesn't match that description and suspect that he could be hiding how much he drinks. HE is clinically sober currently and I suspect his episodes are likely from the alcohol levels. Will provide him outpatient cardiac monitoring and advised to f/u with pcp , return precautions given Differential Diagnosis Differential Diagnosis: alcohol intoxication, electrolyte abnormality, dehydration Medical Records Medical records reviewed: Yes I reviewed the patient's medical records. Lab Data Lab results reviewed: Yes I reviewed the patient's lab results. ECG Data Attestation: I personally reviewed and interpreted this ECG (s) as follows: Prior ECG tracings: available for review Interpretation: sinus tachycardia, rate of 101, no acute st t wave ischemic findings HPI General Mode of arrival: ambulatory . Date/Time Provider Initiated Documentation: 03/07/21 11:12 . Limitations to Documentation: no limitations . Information obtained by: patient . History of Present Illness 35 year old M presents to the emergency department with the chief complaint of passed out, described as moderate, and it has been now resolved. No relieving factors improve symptom(s), No exacerbating factors reported . Patient notes no other symptoms.. Patient did receive the following treatments prior to arrival, none Related Data Home Medications Medication Instructions Recorded Confirmed clonazepam 0.5 mg tablet 0.25 mg PO BID PRN #10 tab MDD 12/13/20 03/07/21 0.5mg bupropion HCl 300 mg 24 hr tablet, 300 mg PO QAM #90 tab 12/14/20 03/07/21 extended release hydrochlorothiazide 25 mg tablet 25 mg PO QAM #90 tab 12/14/20 03/07/21 metoprolol succinate 50 mg 50 mg PO DAILY #90 tab 02/27/21 02/27/21 tablet,extended release 24 hr sumatriptan succinate 50 mg tablet 50 mg PO PRN tab 02/27/21 03/07/21 Previous Rx's Medication Instructions Recorded clonazepam 0.5 mg tablet 0.25 mg PO BID PRN #10 tab MDD 12/13/20 0.5mg bupropion HCl 300 mg 24 hr tablet, 300 mg PO QAM #90 tab 12/14/20 extended release hydrochlorothiazide 25 mg tablet 25 mg PO QAM #90 tab 12/14/20 metoprolol succinate 50 mg 50 mg PO DAILY #90 tab 02/27/21 tablet,extended release 24 hr Allergies Allergy/AdvReac Type Severity Reaction Status Date / Time Thiazides Allergy Unknown Verified 03/07/21 11:14 General Stated Complaint: Dizzy/Sync RUBENS: 2 Review of Systems All systems reviewed & are unremarkable except as noted in HPI and below Constitutional Constitutional: Denies chills, Denies fever(s) and Denies weakness Cardiovascular Cardiovascular: Denies chest pain and Denies dyspnea Respiratory Respiratory: Denies cough and Denies dyspnea Gastrointestinal Gastrointestinal: Denies abdominal pain, Denies nausea and Denies vomiting Musculoskeletal Musculoskeletal: Denies joint swelling Neurologic Neurologic: Denies weakness [facility] Medical History Axillary lymphadenopathy (~09/17/18) Decreased libido (~04/28/18) LOU (generalized anxiety disorder) (~06/23/18) Hyperlipemia (~03/16/18) Hypertension Migraine (~01/01/19) Unintended weight gain (~01/01/19) Surgical History EGD - MAC (07/10/16) [place] teeth extracted Family History Mother Hyperlipidemia Hypertension Substance abuse Father Heart disease Hyperlipidemia Hypertension Maternal Grandfather , age 87 Diabetes Heart disease Paternal Grandfather , age 986 Asthma Cancer Diabetes Heart disease Hyperlipidemia Maternal Grandmother No problems noted. Paternal Grandmother , age 85 No problems noted. Social History Smoking/Tobacco Use Status: Current-Occasional Tobacco Type: cigarettes Smoking packs per day: 0.5 Smoking cigarettes per day: 10.0 Years smoked: 15 Smoking pack-years: 7.50 Quit status: quit date established Smoking risk assessment performed?: Yes Alcohol Intake: current Alcohol Intake frequency: a few times a week Alcohol type: wine Drug use: Rarely Substance use type: marijuana Counseling given: No Counseling provided: none Caregiver/Support person: No Household members: spouse and children Housing: house Communication Needs: None Do you need help understanding health information?: Never Pets and animals: Yes Pets and animals: dog(s) Sexually active: Yes Do you think of yourself as: lesbian/jamison/homosexual Current gender identity: male What is your relationship status?: How often do you talk on the phone with friends or family?: three or more times per week How often do you get together with friends or relatives?: twice per week How often do you attend zoroastrian or druze services?: decline to answer Do you belong to any clubs or organized social groups?: yes Panel score (0-1 are the most socially isolated patients): 3 What type of physical activity do you participate in: yoga Duration: 15-30 minutes/day Frequency: 5-6 times per week Sandy/Baptism: Nondenominational Special sandy needs: No Seatbelt use: always Helmet use: Yes Helmet use: always Drive intox or ride w/intox tow driver: No Do you feel safe at home: Yes Do you feel safe in your relationship?: Yes Victim of physical abuse: No Victim of emotional abuse: No Victim of sexual abuse: No Would you like helpful sources: No Exam Const General: no acute distress Orientation: alert HENMT Head: normal to inspection Ears: external ears normal General nose exam: external nose normal Mouth: moist mucous membranes Eyes General: appearance normal, both eyes and all related structures Neck Neck: normal visual inspection Resp Effort & Inspection: normal respiratory effort and able to speak in complete sentences Cardio Rate: regular rate GI Palpation: soft and nontender Skin General skin exam: no rashes or lesions noted Neuro General: patient alert and patient oriented x3 Extrem General: normal to inspection Psych Mental Status: mental status grossly normal Course Vital Signs Vital signs: Vital Signs Temperature 36.3 C L 03/07/21 11:09 Pulse 103 H 03/07/21 11:09 Respiratory Rate 16 03/07/21 11:09 Blood Pressure 136/85 03/07/21 11:09 Pulse Oximetry 99 03/07/21 11:09 Temperature 36.3 C L 03/07/21 11:09 Temperature Source Skin 03/07/21 11:09 Pulse 103 H 03/07/21 11:09 Respiratory Rate 16 03/07/21 11:09 Respiratory Effort Non-Labored 03/07/21 11:09 Blood Pressure 136/85 03/07/21 11:09 Blood Pressure Position Supine 03/07/21 11:09 Pulse Oximetry 99 03/07/21 11:09 Oxygen Delivery Method Room Air 03/07/21 11:09 Oxygen Flow Rate 0 03/07/21 11:09 Pain Level 0 03/07/21 11:09 PAWSS Have you Been Recently Intoxicated or Drunk Within the Last 30 days?: Yes Have you Ever Experienced Previous Episodes of Alcohol Withdrawal?: No Have you ever Experienced Withdrawal Seizures?: No Have you ever Experienced Delirium Tremens(DT)s?: No Have you ever undergone Alcohol Rehabilitation Treatment (i.e, inpt ot outpatient treatment programs)?: No Have you ever Experienced Blackouts?: No Have you ever Combined Alcohol with other Downers within the last 90 days?: No Have you ever Combined Alcohol with any other Substance of Abuse during the last 90 days?: No Positive Blood Alcohol level on Presentation? [PCS.BAL]: No Evidence of Increased Autonomic Activity (i.e. HR>120, tremor, sweating, agitation, nausea)?: No Result: 1
[2021-03-07] MEDS: Normal Saline 1,000 ML 1000 ML IV (11:21)
[2021-03-07 11:34] LABS: Abs Immature Grans 0.02 10^3/uL (0.0-0.06); Absolute Basophil Count 0.08 10^3/uL (0.0-0.2); Absolute Eosinophil Count 0.06 10^3/uL (0.0-0.7); Absolute Monocyte Count 0.49 10^3/uL (0.1-0.8); Basophils % 1.1; Eosinophils % 0.8; HCT 45.4 % (40.0-50.0); HGB 15.5 g/dL (13.5-17.5); Immature Grans % 0.3; Lymphocytes % 37.6; MCH 32.7 pg (27.0-33.0); MCHC 34.1 % (32.0-36.0); MCV 95.8 fL (80-95); MPV 10.3 fL (8.0-11.0); Monocytes % 6.6; Neutrophils % 53.6; Nucleated RBC 0 %; Platelet Count 204 10^3/uL (130-400); RBC 4.74 10^6/uL (4.36-5.78); RDW 12.6 % (11.8-14.1); RDW-SD 44.7 fL; WBC 7.45 10^3/uL (4.4-10.8)
[2021-03-07 11:48] LABS: Bilirubin Negative (Negative); Blood Negative (Negative); Clarity Clear (Clear); Glucose Negative (Negative); Ketones Negative (Negative); Leukocyte Esterase Negative (Negative); Nitrite Negative (Negative); Specific Gravity 1.015 (1.005-1.025); Urobilinogen 0.2 EU/dL (Up TO 0.2)
[2021-03-07 11:52] LABS: ALT 177 U/L (16-63); AST 105 U/L (15-37); Albumin 4.1 g/dL (3.4-5.0); Alkaline Phosphatase 61 U/L (46-116); BUN 10 mg/dL (7-18); Bilirubin, Direct 0.2 mg/dL (0.0-0.2); Bilirubin, Total 0.3 mg/dL (0.2-1.0); CREATININE 0.8 mg/dL (0.70-1.30); Calcium 8.9 mg/dL (8.5-10.1); Chloride 107 mmol/L (98-107); Glucose 93 mg/dL (74-106); Magnesium 2.2 mg/dL (1.8-2.4); Sodium 148 mmol/L (136-145); Total Protein 8.4 g/dL (6.4-8.2)
[2021-03-07 11:54] LABS: ETHANOL BLOOD 377.3 mg/dL (<10); Troponin I < 0.05 ng/mL (<0.06)
[2021-03-07 12:02] LABS: *AMPHETAMINES SCREEN URINE Negative (Negative); *BARBITURATES SCREEN URINE Negative (Negative); *BENZODIAZEPINES SCREEN URINE Negative (Negative); Cannabinoids THC Negative (Negative); Cocaine Screen,Urine Negative (Negative); METHADONE URINE SCREEN Negative (Negative); OPIATES URINE SCREEN Negative (Negative)
[2021-03-07 12:04] LABS: Tricyclic Antidepressants Negative (Negative)
--- NOTE | 2021-04-19 15:03 | W.CARDEVENT ---
Date of service: 04/19/21 Time of Service: 15:03 Cardiac Event Recorder Referring Provider:: Tamar Moscoso Indications:: Syncope Cardiac Event Note: This is a 30-day event monitor ordered for syncope Rhythm throughout was sinus with an average heart rate of 97. Maximum was 117. There was no significant bradycardia There were very rare isolated premature ventricular contractions There was no atrial fibrillation, no high-grade AV block, no pauses greater than 3 seconds There were no apparent patient symptoms
== END 2021-03-07 14:11 | disposition home or self-care (01) ==
PROVIDERS: Emergency Provider Emergency Medicine
DX: R55 Syncope and collapse (principal); F10.10 Alcohol abuse, uncomplicated; Y90.8 Blood alcohol level of 240 mg/100 ml or more
CPT/HCPCS: 36415; 80053; 80307; 93005; 93270; 96360; 99284; 80320; 81003; 82248; 83735; 84484; 85025; 93010; 99283

== ENCOUNTER 2021-11-16 18:18 | Outpatient (REF) | payer OTHER, SELFPAY | END 2021-11-16 18:19 | disposition home or self-care (01) | LOC: NCHCN 18:18 | PROVIDERS: PCP Nurse Practitioner Family; Visit Provider Nurse Practitioner Family | DX: L72.3 Sebaceous cyst (principal) | CPT/HCPCS: 87070; 87205 ==

== ENCOUNTER 2022-06-10 12:31 | Outpatient (CLI) | payer OTHER, SELFPAY ==
[2022-06-10 12:42] LABS: HCT 40.6 % (40.0-50.0); HGB 13.7 g/dL (13.5-17.5); MCH 32.5 pg (27.0-33.0); MCHC 33.7 % (32.0-36.0); MCV 96 fL (80-95); MPV 11.4 fL (8.0-11.0); RBC 4.22 10^6/uL (4.36-5.78); RDW 13.2 % (11.8-14.1); RDW-SD 46.5 fL; WBC 6.29 10^3/uL (4.4-10.8)
[2022-06-10 13:11] LABS: Platelet Count 64 10^3/uL (130-400)
[2022-06-10 13:12] LABS: ALT 101 U/L (16-63); AST 189 U/L (15-37); Albumin 4.1 g/dL (3.4-5.0); Alkaline Phosphatase 96 U/L (46-116); Anion Gap 11.4 mmol/L (3-11); BUN 9 mg/dL (7-18); Bilirubin, Total 3.2 mg/dL (0.2-1.0); CO2 25.6 mmol/L (21.0-32.0); CREATININE 0.9 mg/dL (0.70-1.30); Calcium 9.5 mg/dL (8.5-10.1); Chloride 100 mmol/L (98-107); Estimated GFR 113.51 (mL/min/1.73m2); Glucose 120 mg/dL (74-106); Potassium 3.9 mmol/L (3.5-5.1); Sodium 137 mmol/L (136-145); Total Protein 8.7 g/dL (6.4-8.2)
== END 2022-06-10 12:32 | disposition home or self-care (01) ==
LOC: LBO 12:32
PROVIDERS: PCP Nurse Practitioner Family; Visit Provider Nurse Practitioner Family
DX: R11.10 Vomiting, unspecified (principal); R19.7 Diarrhea, unspecified
CPT/HCPCS: 36415; 80053; 85027

== ENCOUNTER 2022-06-10 12:47 | Outpatient (REF) | payer OTHER, SELFPAY ==
[2022-06-11 10:43] LABS: Campylobacter PCR Negative (Negative); Salmonella PCR Negative (Negative); Shiga Toxin PCR Negative (Negative); Shigella/Enteroinvasive Ecoli Negative (Negative)
== END 2022-06-10 12:48 | disposition home or self-care (01) ==
LOC: LBN 12:47
PROVIDERS: PCP Nurse Practitioner Family; Visit Provider Nurse Practitioner Family
DX: R19.7 Diarrhea, unspecified (principal); R11.10 Vomiting, unspecified
CPT/HCPCS: 87505

== ENCOUNTER 2022-08-06 02:36 | Outpatient (CLI) | payer OTHER, SELFPAY ==
[2022-08-07 10:24] LABS: Hepatitis A Antibody IgM Negative (Negative); Hepatitis B Core Antibody Negative (Negative); Hepatitis B surface Ag Negative (Negative); Hepatitis C Ab w Rflx HCV PCR Negative (Negative)
[2022-08-07 10:35] LABS: HIV-1/2 Ag & Ab Screen Negative (Negative)
== END 2022-08-06 02:37 | disposition home or self-care (01) ==
LOC: LBO 02:36
PROVIDERS: PCP Nurse Practitioner Family; Visit Provider Nurse Practitioner Family
DX: R79.89 Other specified abnormal findings of blood chemistry (principal); Z11.59 Encounter for screening for other viral diseases; Z11.4 Encounter for screening for human immunodeficiency virus [HIV]
CPT/HCPCS: 36415; 86704; 86709; 86803; 87340; 87389

== ENCOUNTER 2022-08-28 13:28 | Outpatient (REF) | payer OTHER, SELFPAY ==
[2022-08-28 14:06] LABS: Abs Immature Grans 0.01 10^3/uL (0.0-0.06); Absolute Basophil Count 0.08 10^3/uL (0.0-0.2); Absolute Eosinophil Count 0.09 10^3/uL (0.0-0.7); Absolute Lymphocyte Count 1.19 10^3/uL (1.2-3.4); Absolute Monocyte Count 0.46 10^3/uL (0.1-0.8); Absolute Neutrophil Count 2.45 10^3/uL (1.2-6.7); Basophils % 1.9; Eosinophils % 2.1; HCT 36.8 % (40.0-50.0); HGB 12.7 g/dL (13.5-17.5); Immature Grans % 0.2; Lymphocytes % 27.8; MCH 32.8 pg (27.0-33.0); MCHC 34.5 % (32.0-36.0); MCV 95 fL (80-95); MPV 12.3 fL (8.0-11.0); Monocytes % 10.7; Neutrophils % 57.3; RBC 3.87 10^6/uL (4.36-5.78); RDW 14.5 % (11.8-14.1); WBC 4.28 10^3/uL (4.4-10.8)
[2022-08-28 14:13] LABS: ESR 32 mm/hr (0-15)
[2022-08-28 14:22] LABS: Diff Comment Diff Reviewed; Platelet Count 56 10^3/uL (130-400); RBC Morphology Normal
[2022-08-29 14:17] LABS: ANA Interpretation Positive (Negative); ANA Titer Pattern 1:80 Speckled
[2022-08-30 15:06] LABS: dsDNA Ab, IgG <12.3 IU/mL (<30.0)
== END 2022-08-28 13:29 | disposition home or self-care (01) ==
LOC: LBN 13:28
PROVIDERS: PCP Nurse Practitioner Family; Visit Provider Nurse Practitioner Family
DX: R53.1 Weakness (principal); R53.83 Other fatigue; D69.6 Thrombocytopenia, unspecified; R20.0 Anesthesia of skin; I10 Essential (primary) hypertension; R70.0 Elevated erythrocyte sedimentation rate; R23.3 Spontaneous ecchymoses
CPT/HCPCS: 85652; 85025; 86038; 86225

== ENCOUNTER 2022-10-25 02:23 | Outpatient (CLI) | payer OTHER, SELFPAY ==
[2022-11-09 13:46] LABS: Testosterone, Free 14.2 ng/dL (4.65-18.1); Testosterone, Total 822 ng/dL (240-950)
== END 2022-10-25 02:24 | disposition home or self-care (01) ==
LOC: LBO 02:24
PROVIDERS: PCP Nurse Practitioner Family; Visit Provider Nurse Practitioner Family
DX: R79.89 Other specified abnormal findings of blood chemistry (principal); R68.82 Decreased libido; R53.83 Other fatigue
CPT/HCPCS: 36415; 84402; 84403

== ENCOUNTER 2023-02-05 06:22 | Day surgery (SDC) | payer OTHER, SELFPAY ==
--- NOTE | 2023-02-05 06:22 | ANES.PREOP_ITS ---
General Info Date of Service Date Performed: 02/05/23 Height: 5 ft 7 in Weight: 69.4 kg Body Mass Index (BMI): 23.9 Surgical Procedure: Operation Date: 02/05/23 07:35 Proposed Procedure Side Surgeon p Gastroscopy Kaci Dempsey MD Meds Allergies and Home Medications Allergies Allergy/AdvReac Type Severity Reaction Status Date / Time No Known Allergies Allergy Verified 02/04/23 12:12 Home Medication Medication Instructions Recorded metoprolol succinate 50 mg 50 mg PO DAILY #90 tabs 07/15/22 tablet,extended release 24 hr ondansetron 4 mg disintegrating 4 mg PO Q8H PRN nausea and 08/14/22 tablet vomiting #60 tabs naltrexone 50 mg tablet 50 mg PO DAILY #90 tabs 09/30/22 trazodone 50 mg tablet 50 mg PO QHS PRN sleep #90 tabs 09/30/22 hydrochlorothiazide 25 mg tablet 25 mg PO QAM #90 tabs 10/03/22 sumatriptan succinate 50 mg tablet 50 mg PO PRN #60 tabs 10/28/22 venlafaxine 150 mg 150 mg PO QAM #90 caps 10/28/22 capsule,extended release 24 hr pantoprazole 40 mg tablet,delayed 40 mg PO DAILY #90 tabs 01/07/23 release sucralfate 1 gram tablet (Carafate) 1 g PO QACHS #120 tabs 01/07/23 Current Visit Medications: Current Medications Generic Name Dose Route Start Last Admin Trade Name Freq PRN Reason Stop Dose Admin Ringer's Solution 1,000 mls @ 80 mls/hr 02/05/23 06:00 IV 03/06/23 23:59 INFUSION MAURICE IV Miscellaneous Supplies 1 each 02/05/23 06:00 Iv Access IV 03/06/23 23:59 DIRECTED MAURICE Sodium Chloride 0 ml 02/05/23 06:00 Normal Saline Flush 10 Ml Syr IV 03/06/23 23:59 PRN PRN Sodium Chloride 0 ml 02/05/23 06:00 Normal Saline 10 Ml Vial IJ 03/06/23 23:59 DIRECTED PRN Sterile Water 0 ml 02/05/23 06:00 Water,Injection,Sterile 10 Ml Vial IJ 03/06/23 23:59 DIRECTED PRN PFSH Active Problems Active Problems: Problem Status Onset Code Idiopathic thrombocytopenic purpura (ITP) D69.3 Cirrhosis K74.60 Hypertension I10 Axillary lymphadenopathy ~09/17/18 R59.0 LOU (generalized anxiety disorder) ~06/23/18 F41.1 Hyperlipemia ~03/16/18 E78.5 Migraine ~01/01/19 G43.909 Fatigue R53.83 Panic attacks F41.0 Daytime sleepiness R40.0 Depressed mood R45.89 Vomiting and diarrhea R11.10, R19.7 Abnormal bruising R23.3 Thrombocytopenia D69.6 Weakness R53.1 Alcoholism F10.20 Hemangioma D18.00 Itching L29.9 Epigastric abdominal pain R10.13 Medical History Medical History Decreased libido (~04/28/18) Lymphadenopathy, inguinal Surgical History Surgical History EGD - MAC (07/10/16) S/P laparoscopic cholecystectomy (~10/05/19) Matthews teeth extracted Tobacco Smoking/Tobacco Use Status: Current-Occasional Tobacco Type: cigarettes Smoking packs per day: 0.5 Smoking cigarettes per day: 10.0 Years smoked: 15 Smoking pack-years: 7.50 Passive smoking exposure: Yes Second hand exposure: Yes Alcohol Alcohol Intake: former Substance Use Substance use: Occasionally Substance use type: marijuana Counseling provided: none Vital Signs and Lab Results Vital Signs Most Recent Vital Signs in EMR: Temp Pulse Resp BP Pulse Ox 36.5 C 68 18 117/68 97 02/05/23 06:25 02/05/23 06:25 02/05/23 06:25 02/05/23 06:25 02/05/23 06:25 Lab Results Blood Type / Crossmatch: No Data to Display Complete Blood Count: No Data to Display Complete Metabolic Panel: No Data to Display Liver Function Panel: No Data to Display Coagulation Panel: No Data to Display Cardiac Panel: No Data to Display Arterial Blood Gas: No Data to Display Venous Blood Gas: No Data to Display Pancreas Panel: No Data to Display Thyroid Panel: No Data to Display Infectious Disease: No Data to Display Blood Cultures: No Data to Display Toxicology Panel: No Data to Display Imaging and Studies Imaging and Studies Study information below may be from another EMR and interpreted by another provider. Please see original notes in EMR for more complete details. EKG Summary: 03/11: sinus tach Anesthesia Assessment and Plan Anesthesia History Personal History: No History of Anesthesia Complications Family History: No Family History of Anesthesia Complications Exercise Tolerance Exercise Tolerance: Metabolic Equivalents>4 Cardiac & Pulmonary Exam Cardiac Exam: Normal S1/S2 Heart Sounds Pulmonary Exam: Clear Bilateral Breath Sounds Implantable Cardiac Device Does patient have a Pacemaker or an ICD?: No Airway Exam Known Difficult Airway: No Mallampati Class: 3 Mouth Opening: Normal (> 3cm) Thyromental Distance: Greater than 3 cm Neck Range of Motion: Full ROM Neck Circumference: Normal Teeth Condition: Normal Dentition ASA Classification ASA Score: ASA 2 Emergency Case?: No NPO Status NPO Status: NPO Clears >2 hours, Solids >8 hours Anesthesia Plan Resuscitation Status: Full Code Anesthesia Technique: General Anesthesia Airway Planned: Natural Airway Monitors Used: Standard Monitors Preoperative Comments:: 37 yo male with epigastric pain for EGD. Sig PMHx: HTN, cirrhosis, muscle weakness, ITP, depression/anxiety/panic attacks, smoker, occ Cannabis. His LE weakness was evaluated [place] [facility] [place] has since resolved after no longer consuming EtOH. Previous Anes: - EGD, fent/midaz, prop, natural airway, no issues. - lap miguelito, valenzuela 2 grade 2b, easy mask.
[2023-02-05 06:25] VITALS: BP 117/68; PULSE 68; RESP 18; TEMP 36.5; O2SAT 97
[2023-02-05] MEDS: Lactated Ringers 1,000 ML 80 ML IV (06:57)
[2023-02-05 07:01] VITALS: BMI 23.9
--- NOTE | 2023-02-05 07:10 | W.PM.PROGNOT ---
Date of Service Date of service: 02/05/23 Time of Service: 07:10 Assessment and Plan Assessment and plan (1) Epigastric abdominal pain: Status: Acute Assessment and plan: David is here today for his upper endoscopy. We reviewed the procedure again as well as the possible complications. He has no questions at that this time. He has a good understanding of both the procedure and the possible complications and wishes to proceed. Risks, benefits and complications have been reviewed. Complications include but are not limited to bleeding, pain, perforation, sore throat, aspiration, and adverse reaction to the medications. Questions were entertained and answered to their satisfaction and they wished to proceed. No guarantees were given or implied. Proceed with EGD Subjective Subjective Interval history since last seen: David is here today for an EGD, we discussed the procedure again in same-day surgery. We reviewed his history. Nothing has changed since I saw him in the office. He has not had any chest pain or shortness of breath. Exam Const General: cooperative, comfortable and no acute distress Orientation: alert and oriented x3 HENMT Head: normocephalic and atraumatic Resp Effort & Inspection: normal respiratory effort Objective Last Vital Signs Temp 97.7 F 02/05/23 06:25 Pulse 68 02/05/23 06:25 Resp 18 02/05/23 06:25 BP 117/68 02/05/23 06:25 Pulse Ox 97 02/05/23 06:25 Time Spent with Patient Time Spent with Patient: <25 minutes Time was spent: counseling the patient
--- NOTE | 2023-02-05 07:14 | W.PM.DSUDISC ---
Date of service: 02/05/23 Time of Service: 08:13 Discharge Plan Disposition Patient Disposition: Home Condition: Stable Discharge Details Reason For Visit: Abdominal pain Attending Provider: Kaci Dempsey Primary Care Provider: Get Ralph Home Meds and New Rx's Prescriptions: Continued naltrexone 50 mg tablet 50 mg PO DAILY Qty: 90 3RF trazodone 50 mg tablet 50 mg PO QHS PRN (Reason: sleep) Qty: 90 0RF pantoprazole 40 mg tablet,delayed release (DR/EC) 40 mg PO DAILY Qty: 90 0RF sucralfate [Carafate] 1 gram tablet 1 g PO QACHS Qty: 120 0RF metoprolol succinate 50 mg tablet extended release 24 hr 50 mg PO DAILY Qty: 90 3RF ondansetron 4 mg tablet,disintegrating 4 mg PO Q8H PRN (Reason: nausea and vomiting) Qty: 60 0RF hydrochlorothiazide 25 mg tablet 25 mg PO QAM Qty: 90 3RF venlafaxine 150 mg capsule,extended release 24hr 150 mg PO QAM Qty: 90 3RF sumatriptan succinate 50 mg tablet 50 mg PO PRN Qty: 60 3RF Discharge Instructions Additional Instructions: Findings: mild inflammation in the stomach and distal esophagus Other: Continue pantoprazole as prescribed for now I have ordered an US of your liver and Gallbladder. Please call my office if you do not hear from them in the next week. You may take TUMS when you have the pain/nausea and see if that helps Follow up: Please call and make an appointment with me once you have had your Ultrasound ([phone]) Please call if you develop: fevers >101.5 Nausea or Vomiting Abdominal pain that is not transient Rectal bleeding that is more then a tbsp A hard abdomen and inability to pass gas DAY SURGERY UNIT POST ENDOSCOPY INSTRUCTIONS Instructions for everyone who is given Anesthesia: For your safety, please do the following for the next 24 Hours: a. Do not drive or operate dangerous equipment b. Do not drink alcohol beverages or use any recreational drugs for the first 24 hours or while taking pain medications. The medications in your body may have a reaction that can be dangerous. c. Do not make any important decisions or sign any important papers 1. Generally there are no restrictions on your activity after a day or so has gone by, but you may feel a bit fatigued for a few days. 2. After you arrive home you may have a light meal and return to a normal diet as you can tolerate it without feeling sick to your stomach. 3. After surgery, you may feel pain or discomfort. This should be only transient, but if it persists please contact your doctor. 4. If there are any questions regarding the findings of your procedure, please feel free to contact your doctor. 6. If you are unable to contact your doctor with a problem, contact the hospital at [phone]. 7. Continue all your regular medications unless directed otherwise. I understand the above instructions and have no questions. Signature of Patient or Responsible Adult Escort Date/Time Name of Responsible Adult Escort Signature of Nurse Date/Time Stand Alone Forms: Anesthesia Discharge Inst., DSU Post EGD Instructions, iMchael Rebollar (DSU) Activity:: Activity as Tolerated Diet:: As Tolerated Discharge Orders Discharge Orders: Discharge Order (Routine); Ordered 02/05/23 Ordered By: Kaci Dempsey DS: Diagnosis Discharge Diagnosis (1) Epigastric abdominal pain: Status: Acute Asessment and Plan: Patient is seen and examined after their endoscopy. Patient has minimal sore throat. They have been able to tolerate liquids. They do not have any Nausea or Vomiting. They are not having any chest pain or shortness of breath. They have been able to pass gas and are not having any abdominal pain or distention. they have not vomited any blood. The vital signs have been stable-see nursing notes. We discussed findings on their endoscopy We reviewed the importance of lifestyle modifications- see diet recommendations We reviewed any new medications that the patient may be prescribed- see medicine reconciliation. Patient will either be sent a letter with the biopsy results or follow up in the office- see discharge instructions Patient was given explicit instructions for emergency follow up post endoscopy- see discharge instructions Patient verbalized understanding and was discharged in stable and satisfactory condition. See nursing notes.
--- NOTE | 2023-02-05 07:15 | ENDO_ITS ---
Date of service: 02/05/23 Time of Service: 07:51 Endoscopy Report DATE OF PROCEDURE: 02/05/23 PRE-OP DIAGNOSIS: epigastric pain PROCEDURE: EGD with biopsies SURGEON: Kaci Dempsey ANESTHESIA TYPE: General:No Airway ESTIMATED BLOOD LOSS: 2 PATHOLOGY: other (Bx of duodenum, stomach and GE junction) COMPLICATIONS: None DISPOSITION: same day INDICATIONS: David is a pleasant 37-year-old gentleman with epigastric pain that radiates in the upper abdomen as well as upper his chest. He describes it as sharp which then becomes more crampy. Sometimes he feels like he is having a hot flash. Sometimes he has to throw up in order for it to get better. He is on omeprazole. Today he started the pantoprazole 40 mg and sucralfate. He has had an upper endoscopy in the past which was normal. We discussed the pathophysiology of gastritis. We reviewed the potential causes of his pain including acid induced gastritis versus H. pylori induced gastritis. We reviewed the procedure in detail. After our conversation he had a good understanding of the procedure as well as the possible complications. Risks, benefits and complications have been reviewed. Complications include but are not limited to bleeding, pain, perforation, sore throat, aspiration, and adverse reaction to the medications. Questions were entertained and answered to their satisfaction and they wished to proceed. No guarantees were given or implied. FINDINGS: Mild inflammation in the antrum Mild inflammation with features of reflux in the distal esophagus Large tonsils PROCEDURE DESCRIPTION: After informed consent was obtained the patient was take to the procedure room and placed in a supine position. Monitors were applied and a time out was done. The patients name, date of , procedure type, allergies to medications and metal in their body was reviewed. A bite block was placed and the patient was sedated. Once sedated and comfortable the gastroscope was advanced through the oropharynx which was grossly normal into the esophagus. The proximal and mid- esophagus were normal. In the distal esophagus there was mild inflammation at 42 CM noted. The scope was advanced into the stomach and through the pylorus into the 3rd portion of the duodenum. The duodenum was noted to be normal. Biopsies were done. The scope was retracted back into the stomach. There was mild inlfammation. Biopsies were done to rule out H. pylori. There were no ulcers. The scope was retroflexed. The cardia and fundus were noted to be normal. There was no hiatal hernia noted. The scope was retracted back into the esophagus and biopsies were done of the distal esophagus at 42 cm to rule out Tilley's. The Z line was regular. The GE junction was at 43 cm. The scope was removed and the patient was woken up and taken back to [facility] in stable condition. Follow up: Findings are not consistent with patients symptoms. I will order an US. I will have patient follow up after his US
--- NOTE | 2023-02-05 07:35 | STOM_PTH ---
PATIENT: David Berrios LOC: [facility] U#:[id number] AGE/SX: 37/M ROOM: RE02/05/[address]: Kaci Dempsey MD : 1985 BED: DIS: 02/05/2023 SPEC #: [id number] RECD: 02/05/23 12:25 STATUS: ТАТЬЯНА RE #: [id number] TYREE: 02/05/23 07:[address]: Kaci Dempsey DEPT: Surgical Specimen RECD BY: Lucie Ayala ENTERED: 02/05/23 12:26 SP TYPE: STOMACH OTHR DR: Get Clinton DNP Tissues: 1 - BIOPSY BOWEL 2 - STOMACH BIOPSY 3 - ESOPHAGUS BIOPSY Procedures: GROSS AND MICRO LEVEL 4 Comments: [id number]
[2023-02-05 07:48] VITALS: BP 123/76; PULSE 89; RESP 16; TEMP 36.5; O2SAT 98
--- NOTE | 2023-02-05 08:09 | W.ANESPOSTOP ---
Postoperative Evaluation Date, Time and Location Date Performed: 02/05/23 Time Performed: 08:09 Patient Location: Day Surgery Unit Vital Signs Most Recent Imported Vital Signs: Most Recent Vital Signs Temp Pulse Resp BP Pulse Ox 36.5 C 89 16 123/76 98 02/05/23 07:48 02/05/23 07:48 02/05/23 07:48 02/05/23 07:48 02/05/23 07:48 Pain Score Most Recent Pain Score: Most Recent Pain Score Pain Level 0 02/05/23 07:48 Assessment Mental Status: Awake (Alert & Oriented to Patient Baseline) Airway and Respiratory Function: Patent airway with normal (patient baseline) respiratory exam Cardiovascular Function: Hemodynamically Stable Hydration Status: Adequately Hydrated Nausea & Vomiting: No Nausea or Vomiting Pain: Pt. Denies Any Pain Peripheral Nerve Block: Patient did not receive a nerve block
[2023-02-05 08:14] VITALS: BP 116/62; PULSE 77; RESP 18; TEMP 36.4; O2SAT 99
== END 2023-02-05 06:23 | disposition home or self-care (01) ==
PROVIDERS: PCP Nurse Practitioner Family; Visit Provider Surgery
PROC: 0DJ68ZZ Inspection of Stomach, Via Natural or Artificial Opening Endoscopic (ICD-10-PCS; CPT 43235; principal; 2023-02-05 07:30)
DX: K21.00 Gastro-esophageal reflux disease with esophagitis, without bleeding (principal); K29.70 Gastritis, unspecified, without bleeding; R10.13 Epigastric pain
CPT/HCPCS: 43239; 88305; J2001; J2704

== ENCOUNTER → 2023-03-07 00:33 | Outpatient (CLI) | payer OTHER, SELFPAY ==
--- NOTE | 2023-03-07 07:00 | DI.MRI_ITS ---
Exam(s) MR ABDOMEN WO/W EXAM: MR ABDOMEN WO/W CLINICAL HISTORY: abd pain,liver lesions on CT,cirrhosis,k74.60,k76.9 TECHNIQUE: Multiplanar multisequence MRI was performed with both pre and post contrast infused seque nces. Contrast injected sequences were performed following IV injection of 40 cc of Dotarem. COMPARISON: CT CT ABDOMEN PELVIS W from 09/28/2019 US US HERNIA from 12/16/2022 US US ABDOMEN from 02/10/2023 FINDINGS: VISUALIZED LUNG BASES: No pleural effusions evident. There is no ascites evident. LIVER: There are 4 separate focal lesions in the liver, all exhibiting benign appearance. The largest lesion corresponds to the 2.6 x 2.5 x 1.9 cm lesion described on the recent ultrasound in the right hepatic lobe and exhibits signal characteristics and centripetal enhancement pattern consi stent with a benign intraosseous hemangioma. Just medial to this is a 2nd smaller 7 mm lesion which has the appearance of a smaller benign hemangioma. In the superior aspect of the liver-hepatic dome there is a nonenhancing benign cyst which measures 1 .2 x 1.0 cm. There is also a tiny benign cyst in the mid right hepatic lobe measuring approximately 2 mm. There are no ominous neoplastic appearing liver masses. BILIARY: The gallbladder surgically absent. The CBD is not dilated. PANCREAS: There is no evidence of pancreatic mass nor dilatation of the pancreatic duct. SPLEEN: Spleen is not enlarged and there are no intrasplenic lesions.Splenic and portal veins are pat ent ADRENALS: There are no significant adrenal masses. KIDNEYS: No solid renal masses. No hydronephrosis.Tiny benign cyst noted in the lateral cortex of th e left kidney. Does not require further investigation. ABDOMINAL AORTA: Not enlarged and there is no significant para-aortic adenopathy. ANTERIOR ABDOMINAL WALL/GI: There is no evidence of significant anterior abdominal wall hernia in the field of view of this study.There is no evidence of bowel obstruction. However, there are somewhat prominent diameter jejunal loops in left side of the abdomen which exhibits slightly thickened folds- possible enteritis pattern. There is no free fluid. OSSEOUS: There are no lytic osseous lesions in the field of view of this study. IMPRESSION: 1. There are 4 separate findings in the liver. The largest exhibits signal characteristics and enhan cement pattern of a benign cavernous hemangioma, this corresponding to the 2.6 x 1.9 x 2.5 cm lesion described on the recent ultrasound. A smaller hemangioma is seen adjacent to this. There are 2 tasia gn cysts, the larger measuring 1.3 x 1.0 cm and corresponding to the cyst in the superior aspect of t he dome of the liver seen on the prior ultrasound exam. Given the fact that these findings were not evident on contrast infused CT scan of September 2019 (with the exception of the 1.3 x 1.0 cm dome cyst) I recommend repeat MRI in 6 months to ensure stability. 2. Gallbladder surgically absent. The biliary tree is not dilated. 3. Slightly prominent diameter and thickening fold pattern seen in left abdominal jejunal loops which may indicate an element of enteritis. DATA REPOSITORY:
[2023-03-07 08:46] LABS: CREATININE 1.1 mg/dL (0.70-1.30); Estimated GFR 89.22 (mL/min/1.73m2)
[2023-03-07] MEDS: Gadoterate meglumine 20 ML VIAL 14 ML IVP (09:13)
[2023-03-07] MEDS: Normal Saline - Diluent 50 ML VIAL IJ (09:14)
== END ==
PROVIDERS: PCP Nurse Practitioner Family; Visit Provider Surgery
DX: K76.9 Liver disease, unspecified (principal); D18.09 Hemangioma of other sites; Q44.0 Agenesis, aplasia and hypoplasia of gallbladder
CPT/HCPCS: 74183; 82565

== ENCOUNTER 2023-05-15 04:05 | Outpatient (CLI) | payer OTHER, SELFPAY ==
[2023-05-15 15:58] LABS: HCT 41.9 % (40.0-50.0); HGB 15.1 g/dL (13.5-17.5); MCH 30.3 pg (27.0-33.0); MCV 84 fL (80-95); MPV 10.7 fL (8.0-11.0); Platelet Count 109 10^3/uL (130-400); RBC 4.98 10^6/uL (4.36-5.78); RDW 13.2 % (11.8-14.1); RDW-SD 41.1 fL; WBC 7.83 10^3/uL (4.4-10.8)
[2023-05-15 16:45] LABS: ALT 44 U/L (16-63); AST 36 U/L (15-37); Alkaline Phosphatase 94 U/L (46-116); Anion Gap 7.7 mmol/L (3-11); BUN 12 mg/dL (7-18); Bilirubin, Total 0.7 mg/dL (0.2-1.0); CO2 28.3 mmol/L (21.0-32.0); Calcium 9.3 mg/dL (8.5-10.1); Calculated LDL 111 mg/dL (<100); Chloride 102 mmol/L (98-107); Cholesterol 169 mg/dL (<200); Estimated GFR 100.03 (mL/min/1.73m2); Glucose 98 mg/dL (74-106); HDL Cholesterol 37 mg/dL (40-60); Potassium 3.4 mmol/L (3.5-5.1); Sodium 138 mmol/L (136-145); Total Protein 8.5 g/dL (6.4-8.2); Triglyceride 105 mg/dL (<150); Vitamin B12 601 pg/mL (193-986)
== END 2023-05-15 04:06 | disposition home or self-care (01) ==
LOC: LBO 04:05
PROVIDERS: PCP Nurse Practitioner Family; Visit Provider Nurse Practitioner Family
DX: K76.9 Liver disease, unspecified; E78.5 Hyperlipidemia, unspecified
CPT/HCPCS: 36415; 80053; 80061; 85027; 82607; 82746

== ENCOUNTER 2024-01-19 10:24 | Emergency (ER) | payer OTHER, SELFPAY ==
--- NOTE | 2024-01-19 11:18 | W.ED.GENAD ---
Discharge Plan Disposition Patient Disposition: Home Condition: Stable Discharge Details Clinical Impression: Avulsion of finger tip Primary Care Provider: Get [facility] ED Provider: Veronica Leach Home Meds and New Rx's Prescriptions: No Action venlafaxine 150 mg capsule,extended release 24hr 150 mg PO QAM Qty: 30 2RF doxepin 6 mg tablet 6 mg PO QHS Qty: 30 2RF bupropion HCl [Wellbutrin XL] 150 mg tablet extended release 24 hr 150 mg PO QAM Qty: 30 2RF ondansetron 4 mg tablet,disintegrating 4 mg PO Q8H PRN (Reason: nausea and vomiting) Qty: 60 0RF clonidine HCl 0.1 mg tablet 0.1 mg PO DAILY Qty: 30 1RF hydrochlorothiazide 25 mg tablet 25 mg PO QAM Qty: 90 3RF metoprolol succinate 50 mg tablet extended release 24 hr 50 mg PO DAILY Qty: 90 3RF trazodone 50 mg tablet 50 mg PO QHS PRN (Reason: sleep) Qty: 90 4RF sumatriptan succinate 50 mg tablet See Rx Instructions PO .COMPLEX Qty: 14 6RF Rx Instructions: take 1 tab at onset of headache; if no relief may repeat 1 tab after at least 2 hrs; max = 4 tabs/24 hr PO Discharge Instructions Instructions: Taking care of cuts, scrapes, and puncture wounds, Laceration Repair With Glue ED Additional Instructions: Keep clean and dry. You may change the dressing daily. After 24 hours you may wash under running soap and water. No soaking or swimming. The tissue adhesive will start to slough off in approximately 4 to 6 days. Keep it covered thereafter. Follow up with primary care provider in 3-5 days if needed. Return to ED sooner if any worsening or concerns. Referrals: Get Ralph, [facility] [Primary Care Provider] - Return if symptoms worsen HPI General Mode of arrival: ambulatory. Date/Time Provider Initiated Documentation: 01/19/24 11:18. Limitations to Documentation: no limitations. Information obtained by: patient, RN notes reviewed and old records reviewed. HPI Narrative: Patient was using a mandolin slicer last night when he sliced the tip of his left middle finger. Bleeding is controlled upon arrival. Surrounding CMS intact. He does have full range of motion. It does appear to be just the distal tip of the digit. Related Data Home Medications ?Medication ?Instructions ?Recorded ?Confirmed ondansetron 4 mg disintegrating 4 mg PO Q8H PRN nausea and 08/14/22 12/25/23 tablet vomiting #60 tabs clonidine HCl 0.1 mg tablet 0.1 mg PO DAILY #30 tabs 07/29/23 12/25/23 hydrochlorothiazide 25 mg tablet 25 mg PO QAM #90 tabs 07/29/23 12/25/23 metoprolol succinate 50 mg 50 mg PO DAILY #90 tabs 07/29/23 12/25/23 tablet,extended release 24 hr trazodone 50 mg tablet 50 mg PO QHS PRN sleep #90 tabs 11/10/23 12/25/23 bupropion HCl 150 mg 24 hr tablet, 150 mg PO QAM #30 tabs 12/25/23 12/25/23 extended release (Wellbutrin XL) doxepin 6 mg tablet 6 mg PO QHS #30 tabs 12/25/23 12/25/23 venlafaxine 150 mg 150 mg PO QAM #30 caps 12/25/23 12/25/23 capsule,extended release 24 hr sumatriptan succinate 50 mg tablet See Rx Instructions PO .COMPLEX 12/31/23 #14 tabs Previous Rx's ?Medication ?Instructions ?Recorded ondansetron 4 mg disintegrating 4 mg PO Q8H PRN nausea and 08/14/22 tablet vomiting #60 tabs clonidine HCl 0.1 mg tablet 0.1 mg PO DAILY #30 tabs 07/29/23 hydrochlorothiazide 25 mg tablet 25 mg PO QAM #90 tabs 07/29/23 metoprolol succinate 50 mg 50 mg PO DAILY #90 tabs 07/29/23 tablet,extended release 24 hr trazodone 50 mg tablet 50 mg PO QHS PRN sleep #90 tabs 11/10/23 bupropion HCl 150 mg 24 hr tablet, 150 mg PO QAM #30 tabs 12/25/23 extended release (Wellbutrin XL) doxepin 6 mg tablet 6 mg PO QHS #30 tabs 12/25/23 venlafaxine 150 mg 150 mg PO QAM #30 caps 12/25/23 capsule,extended release 24 hr sumatriptan succinate 50 mg tablet See Rx Instructions PO .COMPLEX 12/31/23 #14 tabs Allergies Allergy/AdvReac Type Severity Reaction Status Date / Time No Known Allergies Allergy Verified 03/29/23 10:52 General Stated Complaint: Laceration RUBENS: 5 Review of Systems All systems reviewed & are unremarkable except as noted in HPI and below Integumentary/Breasts Skin/Breast: Reports as per HPI and Reports wounds Exam Extrem Left upper extremity: hand Details: neuromotor exam normal and laceration 3rd digit palmar aspect distal Details: avulsion, involving subcutaneous tissue and with sensation intact Hand/finger images: 1. Avulsion to distal tip, bleeding controlled Medical Decision Making Patient was using a mandolin slicer last night when he sliced the tip of his left middle finger. Bleeding is controlled upon arrival. Surrounding CMS intact. He does have full range of motion. It does appear to be just the distal tip of the digit. Last tetanus was 3 years ago which is up-to-date. Wound cleaned with sterile normal saline, tissue adhesive applied discussed home care and strict return instructions to return for any signs of infection he verbalized understanding. This text was generated using iApp4Me dictation system, please disregard any oddities of phrase or misspellings. Quality:[facility] Health Related Social Needs: No Data to Display [facility] All Active Problems (Updated 01/19/24 @ 11:21 by Veronica Leach NP) Avulsion of finger tip (Acute) Liver lesion (Acute) Idiopathic thrombocytopenic purpura (ITP) (Acute) Cirrhosis (Acute) Hypertension (Chronic) Axillary lymphadenopathy (Acute ~09/17/18) LOU (generalized anxiety disorder) (Acute ~06/23/18) Hyperlipemia (Acute ~03/16/18) Migraine (Chronic ~01/01/19) Occasional Panic attacks (Acute) Daytime sleepiness (Acute) Depressed mood (Acute) Thrombocytopenia (Chronic) 08/23/22 Per ED report from [facility] on 08/19/22. -hb Alcoholism (Acute) Hemangioma (Acute) bridge of nose, under right eye Medical History Epigastric abdominal pain Lymphadenopathy, inguinal Weakness Abnormal bruising Fatigue Decreased libido (~04/28/18) Surgical History S/P laparoscopic cholecystectomy (~10/05/19) [place] teeth extracted EGD - MAC (01/2023) Family History Mother Hyperlipidemia Hypertension Substance abuse Father Heart disease Hyperlipidemia Hypertension Maternal Grandfather , age 87 Diabetes Heart disease Paternal Grandfather , age 986 Asthma Cancer Diabetes Heart disease Hyperlipidemia Maternal Grandmother No problems noted. Paternal Grandmother , age 85 No problems noted. Social History Smoking/Tobacco Use Status: Current every day Tobacco Type: cigarettes Smoking packs per day: 0.5 Smoking cigarettes per day: 10.0 Years smoked: 15 Smoking pack-years: 7.50 Tobacco: How many years used: 20 Quit status: considering quitting Second Hand Exposure: Yes Smoking risk assessment performed?: Yes Alcohol Intake: former Drug use: Occasionally Substance use type: marijuana Counseling given: No Counseling provided: none Caregiver/Support person: No Household members: spouse, children and other Details: mother inlaw Housing: house Communication Needs: None Do you need help understanding health information?: Never Pets and animals: Yes Pets and animals: dog(s) Sexually active: Yes Do you think of yourself as: lesbian/jamison/homosexual Current gender identity: male What is your relationship status?: How often do you talk on the phone with friends or family?: three or more times per week How often do you get together with friends or relatives?: twice per week How often do you attend mandaen or zoroastrianism services?: decline to answer Do you belong to any clubs or organized social groups?: yes Panel score (0-1 are the most socially isolated patients): 3 What type of physical activity do you participate in: yoga Duration: 15-30 minutes/day Frequency: 5-6 times per week Sandy/Anglican: Gnosticism Special sandy needs: No Seatbelt use: always Helmet use: Yes Helmet use: always 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
== END 2024-01-19 11:54 | disposition home or self-care (01) ==
PROVIDERS: Emergency Provider Registered Nurse Emergency; PCP Nurse Practitioner Family
DX: S61.213A Laceration without foreign body of left middle finger without damage to nail, initial encounter (principal); I10 Essential (primary) hypertension; F17.210 Nicotine dependence, cigarettes, uncomplicated; W27.4XXA Contact with kitchen utensil, initial encounter; Y93.G1 Activity, food preparation and clean up
CPT/HCPCS: 99283

== ENCOUNTER 2024-03-23 07:07 | Emergency (ER) | payer OTHER, SELFPAY ==
--- NOTE | 2024-03-23 07:00 | DI.RAD_ITS ---
Exam(s) XR ANKLE LT COMPLETE EXAM: XR ANKLE LT COMPLETE CLINICAL HISTORY: ankle pain TECHNIQUE: 2D digital imaging was performed. Three views. COMPARISON: No exams were available for comparison FINDINGS: BONES: No acute fracture is present. No bony destructive lesion is seen. JOINTS:The ankle mortise is normally aligned. SOFT TISSUE: Normal. IMPRESSION: Unremarkable radiographs of the left ankle. DATA REPOSITORY: RADIATION DOSE DELIVERED:
[2024-03-23 07:10] VITALS: BP 146/80; PULSE 101; RESP 20; TEMP 36.3; O2SAT 98
--- NOTE | 2024-03-23 07:29 | ED.GENADUL_ITS ---
Discharge Plan Disposition Patient Disposition: Home Discharge Details Clinical Impression: Acute left ankle pain Primary Care Provider: Get [facility] ED Provider: Cesar Carrillo Home Meds and New Rx's Prescriptions: Continued bupropion HCl [Wellbutrin XL] 150 mg tablet extended release 24 hr 150 mg PO QAM Qty: 30 3RF doxepin 6 mg tablet 6 mg PO QHS Qty: 30 3RF venlafaxine 150 mg capsule,extended release 24hr 150 mg PO QAM Qty: 30 3RF ondansetron 4 mg tablet,disintegrating 4 mg PO Q8H PRN (Reason: nausea and vomiting) Qty: 60 0RF hydrochlorothiazide 25 mg tablet 25 mg PO QAM Qty: 90 3RF metoprolol succinate 50 mg tablet extended release 24 hr 50 mg PO DAILY Qty: 90 3RF trazodone 50 mg tablet 50 mg PO QHS PRN (Reason: sleep) Qty: 90 4RF sumatriptan succinate 50 mg tablet See Rx Instructions PO .COMPLEX Qty: 14 6RF Rx Instructions: take 1 tab at onset of headache; if no relief may repeat 1 tab after at least 2 hrs; max = 4 tabs/24 hr PO trazodone 50 mg tablet 50 mg PO QHS PRN (Reason: sleep) Qty: 14 0RF clonidine HCl 0.1 mg tablet 0.1 mg PO DAILY PRN Discharge Instructions Instructions: Ankle Sprain ED Additional Instructions: You were seen in the emergency department for your ankle pain. Your x-ray showed no sign of any fractures in your ankle nor your foot. As we discussed if you develop worsening pain please return to the emergency department. Otherwise you may bear weight as tolerated. Please wear this ankle brace and use crutches as needed. For your pain please take medications as follows: 1. Take acetaminophen (Tylenol), 1,000 mg (two 500 mg tabs) every 6 hours [2. Take ibuprofen (Advil), 400 mg every 6 hours.] HPI General Date/Time Provider Initiated Documentation: 03/23/24 07:13 . HPI Narrative: [facility] This is an overall very well-appearing afebrile and mildly tachycardic 38-year-old patient with left ankle and foot pain concerning for sprain versus fracture for which patient will undergo plain films. No pain out of proportion to suggest necrotizing soft tissue infection. Left foot warm and well-perfused so I am not concern for critical limb ischemia so I did not feel the patient required a CT angiogram with runoffs. No midfoot instability so I am not concerned for Lisfranc injury. No left lateral foot tenderness and not concern for Berrios fracture. No history of axial loading to suggest increased risk for talar fracture. No palpable cords to suggest DVT. No fluctuance to suggest abscess. No erythema to suggest cellulitis. Ankle joint is not markedly swollen and patient does not have fever so I am not concerned for septic joint. Patient declines oral analgesia. Will reassess following plain films. 8:53 AM Plain films negative for any acute osseous abnormalities. Patient and I discussed return indications to the ED including any worsening pain swelling or any repeat falls. He was provided with an ankle brace and crutches. I advised rest and elevation. He understood his return indications and was discharged with empiric trial of expectant for outpatient management. HPI This is a 38-year-old male arrived to the emergency department via private vehicle in the setting of left ankle and foot pain. 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 Patient reported twisting his left ankle and then falling down the last step. The device landed on him. He did not strike his head. He did not lose consciousness. He has had pain in his left ankle and has had difficulty bearing weight. He arrives with crutches. He denies preceding nausea vomiting chest pain shortness of breath. Exam General: Well-appearing in no acute distress speaking in complete sentences. Head: Normocephalic, atraumatic. Eye: Extraocular eye movements intact. No conjunctival injection. No scleral icterus. Ear, nose, mouth, throat: Grossly normal inspection. Normal voice, handling secretions normally. Neck: Trachea midline. Cardiovascular: Well-perfused distal extremities. Respiratory: Nonlabored respiration. Gastrointestinal: Nondistended abdomen. Musculoskeletal: No edema. Left lower extremity: Left foot warm well-perfused 2+ PT and DP pulses. Cap refill less than 2 seconds in left toes. Mild medial swelling to medial malleolus. On the proximal lateral aspect of the right midfoot there is tenderness. No ecchymoses. No lacerations. No fluctuance. No cellulitis. 3 out of 5 strength left foot dorsi and plantarflexion limited secondarily by pain. No midfoot instability. No calcaneal tenderness. Skin: Normal for age and race, grossly normal temperature and turgor. No acute rash. Neurologic: Alert and appropriate, no apparent acute deficits. GCS 15. Psychiatric: Mood and manner are appropriate. Grooming and personal hygiene are appropriate. Related Data Home Medications ?Medication ?Instructions ?Recorded ?Confirmed ondansetron 4 mg disintegrating 4 mg PO Q8H PRN nausea and 08/14/22 03/23/24 tablet vomiting #60 tabs hydrochlorothiazide 25 mg tablet 25 mg PO QAM #90 tabs 07/29/23 03/23/24 metoprolol succinate 50 mg 50 mg PO DAILY #90 tabs 07/29/23 03/23/24 tablet,extended release 24 hr trazodone 50 mg tablet 50 mg PO QHS PRN sleep #90 tabs 11/10/23 03/23/24 sumatriptan succinate 50 mg tablet See Rx Instructions PO .COMPLEX 12/31/23 03/23/24 #14 tabs bupropion HCl 150 mg 24 hr tablet, 150 mg PO QAM #30 tabs 02/09/24 03/23/24 extended release (Wellbutrin XL) doxepin 6 mg tablet 6 mg PO QHS #30 tabs 02/09/24 03/23/24 venlafaxine 150 mg 150 mg PO QAM #30 caps 02/09/24 03/23/24 capsule,extended release 24 hr trazodone 50 mg tablet 50 mg PO QHS PRN sleep #14 tabs 02/17/24 03/23/24 clonidine HCl 0.1 mg tablet 0.1 mg PO DAILY PRN 03/23/24 03/23/24 Previous Rx's ?Medication ?Instructions ?Recorded ondansetron 4 mg disintegrating 4 mg PO Q8H PRN nausea and 08/14/22 tablet vomiting #60 tabs hydrochlorothiazide 25 mg tablet 25 mg PO QAM #90 tabs 07/29/23 metoprolol succinate 50 mg 50 mg PO DAILY #90 tabs 07/29/23 tablet,extended release 24 hr trazodone 50 mg tablet 50 mg PO QHS PRN sleep #90 tabs 11/10/23 sumatriptan succinate 50 mg tablet See Rx Instructions PO .COMPLEX 12/31/23 #14 tabs bupropion HCl 150 mg 24 hr tablet, 150 mg PO QAM #30 tabs 02/09/24 extended release (Wellbutrin XL) doxepin 6 mg tablet 6 mg PO QHS #30 tabs 02/09/24 venlafaxine 150 mg 150 mg PO QAM #30 caps 02/09/24 capsule,extended release 24 hr trazodone 50 mg tablet 50 mg PO QHS PRN sleep #14 tabs 02/17/24 Allergies Allergy/AdvReac Type Severity Reaction Status Date / Time No Known Allergies Allergy Verified 03/23/24 07:13 General Stated Complaint: Orthopedic RUBENS: 4 Course Vital Signs Vital signs: Vital Signs Temperature 36.3 C L 03/23/24 07:10 Pulse 101 H 03/23/24 07:10 Respiratory Rate 20 03/23/24 07:10 Blood Pressure 146/80 H 03/23/24 07:10 Pulse Oximetry 98 03/23/24 07:10 Temperature 36.3 C L 03/23/24 07:10 Temperature Source Oral 03/23/24 07:10 Pulse 101 H 03/23/24 07:10 Respiratory Rate 20 03/23/24 07:10 Respiratory Effort Normal, Non-Labored 03/23/24 07:18 Blood Pressure 146/80 H 03/23/24 07:10 Blood Pressure Position Sitting 03/23/24 07:10 Pulse Oximetry 98 03/23/24 07:10 Oxygen Delivery Method Room Air 03/23/24 07:10 Oxygen Flow Rate 0 03/23/24 07:10 Pain Level 8 03/23/24 07:10 Medical Decision Making Quality:SDOH Health Related Social Needs: No Data to Display PFSH All Active Problems (Updated 03/23/24 @ 08:07 by Cesar Carrillo MD) Acute left ankle pain (Acute) Liver lesion (Acute) Idiopathic thrombocytopenic purpura (ITP) (Acute) Cirrhosis (Acute) Hypertension (Chronic) Axillary lymphadenopathy (Acute ~09/17/18) LOU (generalized anxiety disorder) (Acute ~06/23/18) Hyperlipemia (Acute ~03/16/18) Migraine (Chronic ~01/01/19) Occasional Panic attacks (Acute) Daytime sleepiness (Acute) Depressed mood (Acute) Thrombocytopenia (Chronic) 08/23/22 Per ED report from [facility] on 08/19/22. -hb Alcoholism (Acute) Hemangioma (Acute) bridge of nose, under right eye Medical History Epigastric abdominal pain Lymphadenopathy, inguinal Weakness Abnormal bruising Fatigue Decreased libido (~04/28/18) Surgical History S/P laparoscopic cholecystectomy (~10/05/19) [place] teeth extracted EGD - MAC (01/2023) Family History Mother Hyperlipidemia Hypertension Substance abuse Father Heart disease Hyperlipidemia Hypertension Maternal Grandfather , age 87 Diabetes Heart disease Paternal Grandfather , age 986 Asthma Cancer Diabetes Heart disease Hyperlipidemia Maternal Grandmother No problems noted. Paternal Grandmother , age 85 No problems noted. Social History Smoking/Tobacco Use Status: Current every day Tobacco Type: cigarettes Smoking packs per day: 0.5 Smoking cigarettes per day: 10.0 Years smoked: 15 Smoking pack-years: 7.50 Tobacco: How many years used: 20 Quit status: considering quitting Second Hand Exposure: Yes Smoking risk assessment performed?: Yes Alcohol Intake: former Drug use: Occasionally Substance use type: marijuana Counseling given: No Counseling provided: none Caregiver/Support person: No Household members: spouse, children and other Details: mother inlaw Housing: house Communication Needs: None Do you need help understanding health information?: Never Pets and animals: Yes Pets and animals: dog(s) Sexually active: Yes Do you think of yourself as: lesbian/jamison/homosexual Current gender identity: male What is your relationship status?: How often do you talk on the phone with friends or family?: three or more times per week How often do you get together with friends or relatives?: twice per week How often do you attend gnosticist or pentecostal services?: decline to answer Do you belong to any clubs or organized social groups?: yes Panel score (0-1 are the most socially isolated patients): 3 What type of physical activity do you participate in: yoga Duration: 15-30 minutes/day Frequency: 5-6 times per week Sandy/Episcopalian: Shinto Special sandy needs: No Seatbelt use: always Helmet use: Yes Helmet use: always 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
--- NOTE | 2024-03-23 07:30 | DI.RAD_ITS ---
Exam(s) XR FOOT LT COMPLETE EXAM: XR FOOT LT COMPLETE CLINICAL HISTORY: left foot pain sp roll. TECHNIQUE: 2D digital imaging was performed. Three views. COMPARISON: No exams were available for comparison FINDINGS: BONES: No acute fracture is present. No bony destructive lesion is seen. JOINTS: No dislocation present. SOFT TISSUE: Normal. IMPRESSION: Unremarkable radiographs of the left foot. DATA REPOSITORY: RADIATION DOSE DELIVERED:
[2024-03-23 08:01] VITALS: BP 146/98; PULSE 83; RESP 16; O2SAT 93
--- NOTE | 2024-03-23 08:45 | DI.VRAD_ITS ---
PROCEDURE INFORMATION: Exam: XR Left Ankle Exam date and time: 03/23/2024 7:25 AM Age: 38 years old Clinical indication: Pain; Left; Patient HX: Rolled ankle 03/22 TECHNIQUE: Imaging protocol: Radiologic exam of the left ankle. Views: 3 or more views. COMPARISON: No relevant prior studies available. FINDINGS: Bones/joints: Normal. Soft tissues: Normal. IMPRESSION: No acute findings. Dictated and Authenticated by: Uma Landry MD. Ordering:DUKE Guerrero MD
--- NOTE | 2024-03-23 08:45 | DI.VRAD_ITS ---
PROCEDURE INFORMATION: Exam: XR Left Foot Exam date and time: 03/23/2024 7:49 AM Age: 38 years old Clinical indication: Other: Left foot pain S/P roll TECHNIQUE: Imaging protocol: Radiologic exam of the left foot. Views: 3 or more views. COMPARISON: CR XR ANKLE LT COMPLETE 03/23/2024 7:25 AM FINDINGS: Bones/joints: Normal. Soft tissues: Normal. IMPRESSION: No acute findings. Dictated and Authenticated by: Uma Landry MD. Ordering:DUKE Guerrero MD
[2024-03-23 08:59] VITALS: BP 146/98; PULSE 83; RESP 16; O2SAT 93
--- NOTE | 2024-04-07 15:24 | NUR.NOTE ---
Accessed Pt chart to print discharge summary for [facility]
== END 2024-03-23 09:02 | disposition home or self-care (01) ==
PROVIDERS: Emergency Provider Emergency Medicine; PCP Nurse Practitioner Family
DX: M25.572 Pain in left ankle and joints of left foot (principal)
CPT/HCPCS: 99284; 73610; 73630; 99283

== ENCOUNTER 2024-08-23 12:23 | Outpatient (CLI) | payer SELFPAY ==
[2024-08-23 09:31] LABS: ALT 27 U/L (16-63); AST 26 U/L (15-37); Albumin 4.1 g/dL (3.4-5.0); Alkaline Phosphatase 67 U/L (46-116); BUN 10 mg/dL (7-18); Bilirubin, Total 0.7 mg/dL (0.2-1.0); CREATININE 0.9 mg/dL (0.70-1.30); Calcium 9.6 mg/dL (8.5-10.1); Calculated LDL 100 mg/dL (<100); Chloride 98 mmol/L (98-107); Cholesterol 172 mg/dL (<200); Estimated GFR 112.11 (mL/min/1.73m2); Glucose 82 mg/dL (74-106); HDL Cholesterol 45 mg/dL (>or=40); Potassium 3.5 mmol/L (3.5-5.1); Sodium 138 mmol/L (136-145); Triglyceride 136 mg/dL (<150)
== END 2024-08-23 12:24 | disposition home or self-care (01) ==
PROVIDERS: PCP Nurse Practitioner Family; Visit Provider Nurse Practitioner Family
DX: Z13.220 Encounter for screening for lipoid disorders (principal)
CPT/HCPCS: 36415; 80053; 80061

== ENCOUNTER 2024-10-07 14:14 | Outpatient (CLI) | payer BC, SELFPAY ==
--- NOTE | 2024-10-07 13:45 | DI.MRI_ITS ---
Exam(s) MR BRAIN WO EXAM: MR BRAIN WO CLINICAL HISTORY: no improvement with triptan or NSAID G44.52 NEW DAILY PERSISTANT HEADACHE TECHNIQUE: Multiplanar multisequence MRI of the brain was performed. COMPARISON: No exams were available for comparison FINDINGS: VENTRICLES AND EXTRA AXIAL SPACES: Normal in size and morphology for the patient's age. MIDLINE SHIFT: None. CEREBRAL PARENCHYMA: No focus of restricted diffusion to suggest acute infarct. No space-occupying lesion identified. No abnormal white matter foci. BRAINSTEM/CEREBELLUM: Normal. VISUALIZED PARANASAL SINUSES: Opacification of the right maxillary sinus. No sinus expansion. Mucosal thickening of the left sphenoid sinus and posterior left ethmoid sinus. MASTOIDS:Clear. Vasculature: Normal flow void. PITUITARY GLAND: Unremarkable. ORBITS: Unremarkable. IMPRESSION: Unremarkable MRI of the brain. Right maxillary and left sphenoid sinus disease. DATA REPOSITORY:
== END 2024-10-07 14:34 ==
PROVIDERS: PCP Nurse Practitioner Family; Visit Provider Nurse Practitioner Family
DX: G44.52 New daily persistent headache (NDPH) (principal); J32.3 Chronic sphenoidal sinusitis
CPT/HCPCS: 70551

== ENCOUNTER 2024-11-05 10:29 | Day surgery (SDC) | payer BC, SELFPAY ==
[2024-11-05 11:33] VITALS: BP 118/84; PULSE 74; RESP 17; TEMP 36.2; O2SAT 100
[2024-11-05] MEDS: Lactated Ringers 1,000 ML 80 ML IV (11:47)
--- NOTE | 2024-11-05 12:09 | W.SURGCON ---
Date of service: 11/05/24 Time of Service: 12:34 Assessment and Plan Assessment and plan (1) Altered bowel habits: Status: Acute Assessment and plan: 39-year-old man with bowel habit changes that are new and do not have a good explanation. Diagnostic colonoscopy to rule out the low likelihood but possibility of colorectal malignancy is definitely indicated. I was very straightforward with him that the biggest risk of the procedure today is nondiagnostic results. Namely, that his colon and rectum appear completely normal and he may not find an answer for his bowel habit changes. Nonetheless, it is definitely warranted to make sure that colorectal cancer is not the underlying explanation for it. Overall plan: Colonoscopy History of Present Illness Narrative: The patient is a 39-year-old man who has had stomach issues including abdominal discomfort, bloating and pain for the last couple of years. In the last year he has developed worsening constipation and changes in his stool caliber, quality and color. He has not noticed any bleeding and occasionally does have some loose stools but not on a daily basis. He denies any significant dietary changes or lifestyle changes to explain his symptoms. He has had an upper endoscopy without any significant findings. There is no family history of colon cancer to his knowledge. Surgical history significant for cholecystectomy. [facility] All Active Problems Bipolar disorder, rapid cycling (Acute) New daily persistent headache (Acute) History of smoking (Acute) Altered bowel habits (Acute) ADHD (attention deficit hyperactivity disorder), combined type (Acute) Liver lesion (Acute) Idiopathic thrombocytopenic purpura (ITP) (Acute) Cirrhosis (Acute) Hypertension (Chronic) LOU (generalized anxiety disorder) (Acute ~06/23/18) Hyperlipemia (Acute ~03/16/18) Migraine (Chronic ~01/01/19) Occasional Panic attacks (Acute) Depressed mood (Acute) Thrombocytopenia (Chronic) 08/23/22 Per ED report from [facility] on 08/19/22. -hb Alcoholism (Acute) Hemangioma (Acute) bridge of nose, under right eye Medical History Daytime sleepiness Axillary lymphadenopathy (~09/17/18) Epigastric abdominal pain Weakness Abnormal bruising Fatigue Lymphadenopathy, inguinal Decreased libido (~04/28/18) Surgical History S/P laparoscopic cholecystectomy (~10/05/19) [place] teeth extracted EGD - MAC (01/2023) Family History Mother Hyperlipidemia Hypertension Substance abuse Father Heart disease Hyperlipidemia Hypertension Maternal Grandfather , age 87 Diabetes Heart disease Paternal Grandfather , age 986 Asthma Cancer Diabetes Heart disease Hyperlipidemia Maternal Grandmother No problems noted. Paternal Grandmother , age 85 No problems noted. Social History Smoking/Tobacco Use Status: Current every day Tobacco Type: cigarettes Smoking packs per day: 0.5 Smoking cigarettes per day: 10.0 Years smoked: 15 Smoking pack-years: 7.50 Tobacco: How many years used: 20 Quit status: considering quitting Second Hand Exposure: Yes Smoking risk assessment performed?: Yes Alcohol Intake: former Drug use: Occasionally Substance use type: marijuana Counseling given: No Counseling provided: none Details: evenings-smokes marijuana t-1, joint Caregiver/Support person: No Household members: spouse, children and other Details: mother inlaw Housing: house Communication Needs: None Do you need help understanding health information?: Never Pets and animals: Yes Pets and animals: dog(s) Sexually active: Yes Do you think of yourself as: lesbian/jamison/homosexual Current gender identity: male What is your relationship status?: How often do you talk on the phone with friends or family?: three or more times per week How often do you get together with friends or relatives?: twice per week How often do you attend samaritan or anglican services?: decline to answer Do you belong to any clubs or organized social groups?: yes Panel score (0-1 are the most socially isolated patients): 3 What type of physical activity do you participate in: yoga Duration: 15-30 minutes/day Frequency: 5-6 times per week Sandy/Sikh: Restorationism Special sandy needs: No Seatbelt use: always Helmet use: Yes Helmet use: always Drive intox or ride w/intox cdl company flatbed driver: No Do you feel safe at home: Yes Do you feel safe in your relationship?: Yes Victim of physical abuse: No Victim of emotional abuse: No Victim of sexual abuse: No Would you like helpful sources: No Exam Narrative Exam Narrative: Gen: Non-toxic, comfortable and interactive Neuro: Alert and oriented x3 Psych: Good mood and affect. Good insight and understanding into condition. Chest: Non-labored breathing, no wheezing, no visible shortness of breath. Heart: Regular Results Last Vital Signs Temp 97.2 F L 11/05/24 11:33 Pulse 74 11/05/24 11:33 Resp 17 11/05/24 11:33 BP 118/84 11/05/24 11:33 Pulse Ox 100 11/05/24 11:33
--- NOTE | 2024-11-05 12:40 | W.COLOREPORT ---
Date of service: 11/05/24 Time of Service: 12:40 Colonoscopy Report Procedure Description: PROCEDURES PERFORMED: 1. Colonoscopy with cold forceps polypectomy x2 PREOPERATIVE DIAGNOSIS: Bowel habit changes, new constipation POSTOPERATIVE DIAGNOSIS: Colorectal polyps, grade 1 internal hemorrhoids SURGEON: Marianne Arenas MD INDICATION FOR PROCEDURE: 39-year-old man has been having bowel habit changes(new constipation) for the last while that are new without any dietary changes or new medications. FINDINGS: Normal terminal ileum. Polyps: On the top of the ileocecal valve, there were 2, small, 2-3 mm sessile polyps. I removed them with cold forceps technique and sent them together. No other polyps are seen anywhere else in the colon. There was no obvious or significant diverticular disease seen anywhere. Grade 1 internal hemorrhoids are present. SURVEILLANCE interval/FOLLOW-UP: Pending path results on the polyps. If these are sessile serrated polyps, a repeat colonoscopy in 3 years would be indicated. If it is otherwise benign tissue related to the valve (by chance) then the next colonoscopy would be warranted in 10 years as his first screening. SPECIMENS: Yes EBL: Minimal COMPLICATIONS: None QUALITY of prep: Excellent Procedure in detail: The patient gave written consent and was in agreement with the indications, the potential risks as well as the benefits of the procedure. They were taken to the endoscopy suite and laid in the left lateral decubitus position. A timeout was performed and anesthesia was administered which was tolerated well. I started the procedure. Digital rectal and visual examination was performed and grossly within normal limits. A well-lubricated flexible colonoscope was then introduced and passed without any notable difficulty all the way to the cecum identified by the ileocecal valve and the appendiceal orifice. The terminal ileum was briefly, superficially intubated and looked normal. The scope was then slowly withdrawn with the above-noted findings. The patient tolerated the procedure well and was taken to the PACU in hemodynamically stable condition.
--- NOTE | 2024-11-05 12:40 | W.PM.DSUDISC ---
Date of service: 11/05/24 Discharge Plan Disposition Patient Disposition: Home Condition: Good Discharge Details Attending Provider: Remington Arenas Primary Care Provider: Get Ralph Home Meds and New Rx's Prescriptions: No Action bisacodyl [Dulcolax (bisacodyl)] 5 mg tablet,delayed release (DR/EC) 5 mg PO ONCE Qty: 4 0RF Rx Instructions: Take per colonoscopy instructions provided by ordering providers office polyethylene glycol 3350 17 gram/dose powder 17 g PO ONCE Qty: 238 0RF Rx Instructions: Take per colonoscopy instructions provided by ordering providers office dextroamphetamine-amphetamine [Adderall XR] 10 mg capsule,extended release 24hr 10 mg PO QAM MDD XR 10 mg Qty: 28 0RF dextroamphetamine-amphetamine [Adderall XR] 10 mg capsule,extended release 24hr 10 mg PO QAM MDD XR 10 mg Qty: 28 0RF venlafaxine 75 mg capsule,extended release 24hr 75 mg PO QAM Qty: 30 1RF quetiapine 25 mg tablet 25 mg PO QHS Qty: 30 1RF trazodone 50 mg tablet 50 mg PO QHS PRN (Reason: sleep) Qty: 14 0RF dextroamphetamine-amphetamine [Adderall XR] 10 mg capsule,extended release 24hr 10 mg PO QAM MDD XR 10 mg Qty: 28 0RF dextroamphetamine-amphetamine [Adderall] 5 mg tablet 5 mg PO DAILY MDD IR 5 mg PRN (Reason: ADHD symtoms) Qty: 28 0RF Rx Instructions: *use once a day, in the early afternoon, if needed for high cognitively-demanding tasks* bupropion HCl [Wellbutrin XL] 150 mg tablet extended release 24 hr 150 mg PO QAM Qty: 90 3RF hydrochlorothiazide 25 mg tablet 25 mg PO QAM Qty: 90 3RF metoprolol succinate 50 mg tablet extended release 24 hr 50 mg PO DAILY Qty: 90 3RF sumatriptan succinate 50 mg tablet See Rx Instructions PO .COMPLEX Qty: 14 6RF Rx Instructions: take 1 tab at onset of headache; if no relief may repeat 1 tab after at least 2 hrs; max = 4 tabs/24 hr PO clonidine HCl 0.1 mg tablet 0.1 mg PO DAILY PRN Discharge Instructions Additional Instructions: FINDINGS: There were no findings that would explain bowel habit changes. Incidentally, a couple of very small polyps were seen and thus removed. These polyps do get tested under microscope and depending on the type of polyp, you may need to have another colonoscopy in as little as 3 years. We will call you with those results in a few weeks. You have mild internal hemorrhoid disease which is extremely common, benign and nothing is to be done about it. If you continue to have bowel habit problems, you can consider consultation with a predatory game hunter. Stand Alone Forms: Anesthesia Discharge Inst., Colonoscopy Post Instructions, Michael Rebollar (DSU) Activity:: Activity as Tolerated Diet:: As Tolerated Discharge Orders Discharge Orders: Discharge Order (Routine); Ordered 11/05/24 Ordered By: Remington Arenas DS: Diagnosis Discharge Diagnosis (1) Altered bowel habits: Status: Acute
--- NOTE | 2024-11-05 12:45 | W.ANESPRE ---
General Info Date of Service Date Performed: 11/05/24 Height: 5 ft 7 in Weight: 66 kg Body Mass Index (BMI): 22.8 Surgical Procedure: Operation Date: 11/05/24 11:20 Proposed Procedure Side Surgeon ita Arenas MD Meds Allergies and Home Medications Allergies Allergy/AdvReac Type Severity Reaction Status Date / Time No Known Allergies Allergy Verified 11/05/24 11:28 Home Medication ?Medication ?Instructions ?Recorded trazodone 50 mg tablet 50 mg PO QHS PRN sleep #14 tabs 02/17/24 clonidine HCl 0.1 mg tablet 0.1 mg PO DAILY PRN 03/23/24 bisacodyl 5 mg tablet,delayed 5 mg PO ONCE #4 tabs 08/12/24 release (Dulcolax (bisacodyl)) polyethylene glycol 3350 17 17 g PO ONCE #238 grams 08/12/24 gram/dose oral powder dextroamphetamine-amphetamine ER 10 mg PO QAM #28 caps 08/26/24 10 mg 24hr capsule,extend release (Adderall XR) dextroamphetamine-amphetamine ER 10 mg PO QAM #28 caps 08/26/24 10 mg 24hr capsule,extend release (Adderall XR) dextroamphetamine-amphetamine 5 mg 5 mg PO DAILY PRN ADHD symtoms #28 08/30/24 tablet (Adderall) tabs dextroamphetamine-amphetamine ER 10 mg PO QAM #28 caps 08/30/24 10 mg 24hr capsule,extend release (Adderall XR) bupropion HCl 150 mg 24 hr tablet, 150 mg PO QAM #90 tabs 10/28/24 extended release (Wellbutrin XL) hydrochlorothiazide 25 mg tablet 25 mg PO QAM #90 tabs 10/28/24 metoprolol succinate 50 mg 50 mg PO DAILY #90 tabs 10/28/24 tablet,extended release 24 hr sumatriptan succinate 50 mg tablet See Rx Instructions PO .COMPLEX 10/28/24 #14 tabs quetiapine 25 mg tablet 25 mg PO QHS for mood stability 11/04/24 #30 tabs venlafaxine 75 mg capsule,extended 75 mg PO QAM #30 caps 11/04/24 release 24 hr Current Visit Medications: Current Medications Generic Name Dose Route Start Last Admin Trade Name Freq PRN Reason Stop Dose Admin Ringer's Solution 1,000 mls @ 80 mls/hr 11/05/24 06:00 11/05/24 11:47 IV 11/05/24 23:59 80 mls/hr INFUSION MAURICE Administration IV Miscellaneous Supplies 1 each 11/05/24 06:00 Iv Access IV 11/05/24 23:59 DIRECTED MAURICE Sodium Chloride 0 ml 11/05/24 06:00 Normal Saline Flush 10 Ml Syr IV 11/05/24 23:59 PRN PRN Sodium Chloride 0 ml 11/05/24 06:00 Normal Saline 10 Ml Vial IJ 11/05/24 23:59 DIRECTED PRN Sterile Water 0 ml 11/05/24 06:00 Water,Injection,Sterile 10 Ml Vial IJ 11/05/24 23:59 DIRECTED PRN PFSH Active Problems Active Problems: Problem Status Onset Code Bipolar disorder, rapid cycling Acute F31.9 New daily persistent headache Acute G44.52 History of smoking Acute Z87.891 Altered bowel habits Acute R19.4 ADHD (attention deficit hyperactivity disorder), combined type Acute F90.2 Liver lesion Acute K76.9 Idiopathic thrombocytopenic purpura (ITP) Acute D69.3 Cirrhosis Acute K74.60 Hypertension Chronic I10 LOU (generalized anxiety disorder) Acute ~06/23/18 F41.1 Hyperlipemia Acute ~03/16/18 E78.5 Migraine Chronic ~01/01/19 G43.909 Panic attacks Acute F41.0 Depressed mood Acute R45.89 Thrombocytopenia Chronic D69.6 Alcoholism Acute F10.20 Hemangioma Acute D18.00 Medical History Medical History Daytime sleepiness Axillary lymphadenopathy (~09/17/18) Epigastric abdominal pain Weakness Abnormal bruising Fatigue Lymphadenopathy, inguinal Decreased libido (~04/28/18) Surgical History Surgical History S/P laparoscopic cholecystectomy (~10/05/19) [place] teeth extracted EGD - MAC (01/2023) Tobacco Smoking/Tobacco Use Status: Current every day Tobacco Type: cigarettes Smoking packs per day: 0.5 Smoking cigarettes per day: 10.0 Years smoked: 15 Smoking pack-years: 7.50 Passive smoking exposure: No Second hand exposure: Yes Alcohol Alcohol Intake: former Substance Use Substance use: Occasionally Substance use type: marijuana Counseling provided: none Details: evenings-smokes marijuana t-1, joint Vital Signs and Lab Results Vital Signs Most Recent Vital Signs in EMR: Most Recent Vital Signs Temp Pulse Resp BP Pulse Ox 36.2 C L 74 17 118/84 100 11/05/24 11:33 11/05/24 11:33 11/05/24 11:33 11/05/24 11:33 11/05/24 11:33 Imaging and Studies Imaging and Studies Study information below may be from another EMR and interpreted by another provider. Please see original notes in EMR for more complete details. EKG Summary: 03/11: sinus tach Anesthesia Assessment and Plan Anesthesia History Personal History: No History of Anesthesia Complications Family History: Family History Unknown Exercise Tolerance Exercise Tolerance: Metabolic Equivalents>4 Pertinent Negatives Pertinent Negatives: No Symptoms of GERD Cardiac & Pulmonary Exam Cardiac Exam: Normal S1/S2 Heart Sounds Pulmonary Exam: Clear Bilateral Breath Sounds Implantable Cardiac Device Does patient have a Pacemaker or an ICD?: No Airway Exam Known Difficult Airway: No Mallampati Class: 3 Mouth Opening: Normal (> 3cm) Thyromental Distance: Greater than 3 cm Neck Range of Motion: Full ROM Neck Circumference: Normal Teeth Condition: Normal Dentition ASA Classification ASA Score: ASA 2 Emergency Case?: No NPO Status NPO Status: NPO Clears >2 hours, Solids >8 hours Anesthesia Plan Resuscitation Status: Full Code Anesthesia Technique: General Anesthesia Airway Planned: Natural Airway Monitors Used: Standard Monitors
[2024-11-05 12:46] VITALS: BMI 22.8
--- NOTE | 2024-11-05 13:00 | BOWEL_PTH ---
PATIENT: David Berrios LOC: [facility] U#:[id number] AGE/SX: 39/M ROOM: RE11/05/[address]: Remington Arenas : 1985 BED: DIS: 11/05/2024 SPEC #: [id number] RECD: 11/08/24 12:08 STATUS: ТАТЬЯНА CABRALES #: [id number] TYREE: 11/05/24 13:[address]: Remington Arenas DEPT: Surgical Specimen RECD BY: Lucie Ayala ENTERED: 11/08/24 12:10 SP TYPE: Bowel OTHR DR: Get Clinton DNP Tissues: 1 - BIOPSY BOWEL Procedures: GROSS AND MICRO LEVEL 4 Comments: [id number]
[2024-11-05 13:16] VITALS: BP 123/80; PULSE 75; RESP 16; TEMP 36.3; O2SAT 98
--- NOTE | 2024-11-05 13:22 | W.ANESPOSTOP ---
Postoperative Evaluation Date, Time and Location Date Performed: 11/05/24 Time Performed: 13:22 Patient Location: Day Surgery Unit Vital Signs Most Recent Imported Vital Signs: Most Recent Vital Signs Temp Pulse Resp BP Pulse Ox 36.3 C L 75 16 123/80 98 11/05/24 13:16 11/05/24 13:16 11/05/24 13:16 11/05/24 13:16 11/05/24 13:16 Pain Score Most Recent Pain Score: Most Recent Pain Score Pain Level 0 11/05/24 11:33 Assessment Mental Status: Awake (Alert & Oriented to Patient Baseline) Airway and Respiratory Function: Patent airway with normal (patient baseline) respiratory exam Cardiovascular Function: Hemodynamically Stable Hydration Status: Adequately Hydrated Nausea & Vomiting: No Nausea or Vomiting Pain: Pt. Denies Any Pain Peripheral Nerve Block: Patient did not receive a nerve block
[2024-11-05 13:54] VITALS: BP 126/78; PULSE 72; RESP 17; TEMP 36.1; O2SAT 100
== END 2024-11-05 14:10 | disposition home or self-care (01) ==
LOC: SUR 10:29
PROVIDERS: PCP Nurse Practitioner Family; Visit Provider Student in an Organized Health Care Education/Training Program
PROC: 0DJD8ZZ Inspection of Lower Intestinal Tract, Via Natural or Artificial Opening Endoscopic (ICD-10-PCS; CPT 45378; principal; 2024-11-05 11:15)
DX: K63.5 Polyp of colon (principal); K64.8 Other hemorrhoids; K59.00 Constipation, unspecified
CPT/HCPCS: 45380; 88305; J2704